=== PATIENT | female | born 1950 | race Caucasian/White ===

== ENCOUNTER → 2016-11-26 | Outpatient (CLI) | payer OTHER ==
[2014-07-20 10:01] VITALS: BP 179/86
[~2016-11-26] MED LIST: ASPI325T4 PO; ATEN25TA PO; ATOR20TA PO; CYCL1DRO OP; DIAZ5TAB PO; DULO60CA6 PO; ESOM40CA PO; FLUO20CA16 PO; FLUO20CA8 PO; HYDR200T PO; HYDR4TAB13 PO; HYDR8TAB29 PO; IBUP-1027 PO; IBUP-1060 PO; LIDO700A4 TP; MECL12.52 PO; META800T PO; META800T21 PO; OXYC15TA PO; OXYM20TA10 PO; PREG75CA PO; RANI150T6 PO; TIZA4CAP3 PO
--- NOTE | 2016-11-27 05:02 | PAIN ---
DATE OF SERVICE: 11/26/2016 PROGRESS NOTE FOR PAIN CLINIC DIAGNOSES: 1. Lumbar radiculopathy with lumbar spinal stenosis and lumbar degenerative disk disease. 2. Myofascial pain. HISTORY OF PRESENT ILLNESS: The patient is a 66-year-old female who returns for followup status post medication management with both oxycodone and Lidoderm patches as well as diazepam. The patient reports she is doing much better with the oxycodone as far as it is not causing a fogginess as the hydromorphone did that we had her on before. The patient reports the pain is not well controlled; however, only about 50% improvement with the medication and she has been increasing her activity lately, which may have some contributing factors as well, taking care of her [id number] who has been quite ill with a lot of lifting and cleaning and even working on her hands and knees with hydraulic tester. The patient reports the pain is now in the low back, bilateral lower extremities, radiating into the both of them with achy, sharp, dull, shooting and tingling sensation, which is sometimes constant. The patient reports that she is only sleeping for a few hours at night. She is having to wake up frequently, change positions, and even take pain medicine at night sometimes. The patient reports no new motor or sensory deficits, no new bowel or bladder incontinence or other complaints. The patient rates her pain anywhere from a 6-10 on the scale 10; it is currently at 6 today. PHYSICAL EXAMINATION: VITAL SIGNS: The patient's blood pressure is 157/87, pulse 59, respirations are 20, temperature is 98.2 degrees Fahrenheit, height is 5 feet 2 inches, and weighs 177 pounds. GENERAL: The patient is awake, alert, oriented, appropriate, very pleasant demeanor. HEENT: Head shows normocephalic, atraumatic. Extraocular movements are intact, symmetrical. Oral cavity, mucous membranes are moist and pink. Dentition is intact. NECK: Shows anterior throat supple without palpable lymphadenopathy noted. Swallow reflex is symmetrical. CHEST: Shows normal on inspection. Breath sounds are clear to auscultation bilaterally. HEART: Shows S1 and S2 clear. No murmurs auscultated. ABDOMEN: Obese, soft, nontender, nondistended. No palpable organomegaly is noted. No rebound or guarding demonstrated. BACK: The patient's back shows spine grossly midline. Lumbar paraspinous muscle shows some mild tenderness with palpation in the paraspinous musculature both in the middle and lower distribution, but without radiation. EXTREMITIES: The patient's lower extremities showed deep tendon reflexes 1+ in the patellar and tendo calcaneus tendons. Motor exam is 5/5 with dorsiflexion, extension and equal. PLAN: Options were discussed with the patient and the patient's old chart was reviewed as was her current medication regimen updated. Current review of systems updated today as well and we will refill the patient's Lidoderm patches as well as Valium and also change the oxycodone from 10 mg to 15 mg with instructions, side effects to be aware of discussed with each of her medications. We will follow up in approximately 2 months or sooner if necessary. The patient was cautioned as to the medication regimen and if any difficulties arise to call immediately and discuss potential changes at that time. The patient understands and agrees. We will follow up as scheduled. TASHIA RAINES MD DR: SONIA/anya JOB#: [id number] / [id number]
== END | disposition home or self-care (01) ==
LOC: PNCL 13:03
PROVIDERS: ATTEND Anesthesiology
DX: M51.16 Intervertebral disc disorders with radiculopathy, lumbar region (principal); M48.06 Spinal stenosis, lumbar region; M79.1 Myalgia
CPT/HCPCS: 99212

== ENCOUNTER → 2017-01-28 | Outpatient (CLI) | payer OTHER ==
[2014-07-20 10:01] VITALS: BP 179/86
[~2017-01-28] MED LIST changes: -ASPI325T4 PO; +ASPI325T8 PO; -HYDR4TAB13 PO; +HYDR4TAB45 PO; +META-21 PO; -META800T21 PO; -OXYM20TA10 PO; +OXYM20TA17 PO
== END | disposition home or self-care (01) ==
LOC: PNCL 09:59
PROVIDERS: ATTEND Anesthesiology
DX: M48.06 Spinal stenosis, lumbar region (principal); M51.16 Intervertebral disc disorders with radiculopathy, lumbar region
CPT/HCPCS: G0463

== ENCOUNTER → 2017-03-25 | Outpatient (CLI) | payer OTHER ==
[2014-07-20 10:01] VITALS: BP 179/86
--- NOTE | 2017-03-25 19:16 | PN ---
DATE: 03/25/2017 DIAGNOSES: Lumbar radiculopathy with lumbar degenerative disk disease and lumbar spinal stenosis with myofascial pain. HISTORY OF PRESENT ILLNESS: The patient is a 66-year-old female who returns for followup status post medication management with both oxycodone and Valium and Lidoderm patches. The patient reports she has been doing fairly well with this, but the oxycodone is not lasting as it did in the past and she is having to take more Advil and Tylenol on top of the pain medications to try and get any relief. The patient reports still significant pain across the low back in the bilateral posterior gluteus regions and lateral thighs as well as medial thighs, middle back, upper back and neck; rates a 10 on a scale of 10 at its worst, rates a 7 at its least and is 7 on average. The patient reports it as aching, tight, tingling, constant, radiating in the lower extremities and the back. The patient has not had any diagnostic studies on her back recently. We discussed an MRI scan, but she would like to wait until she has Medicare insurance, which she will have in May of this year. The patient reports no side effects with medication and generally reports about a 75-80% improvement with the medications but now has about 50% improvement. The patient reports it awakens her from sleep. She is only sleeping 2 to 3 hours a night. She has to reposition, take pain medication, get out of bed, changing positions, but is able to get back to sleep most nights. PHYSICAL EXAMINATION: VITAL SIGNS: Today, the patient's blood pressure 143/81, pulse 63, respirations 18, temperature is 97.7 degrees Fahrenheit, height is 5 feet 2 inches, weighs 174 pounds. GENERAL: The patient is awake, alert, oriented, appropriate, very pleasant demeanor. HEENT: Shows normocephalic, atraumatic. Extraocular movements are intact and symmetrical. Oral cavity, mucous membranes are moist and pink. Dentition is intact. NECK: Shows anterior throat supple. CHEST: Shows breath sounds clear to auscultation bilaterally. HEART: Shows S1 and S2 clear. ABDOMEN: Obese, soft, nontender, nondistended. No palpable organomegaly is noted. BACK: Shows spine grossly midline. Normal appearing thoracic kyphosis and minor flattening of lumbar lordotic curvature. Lumbar paraspinous muscle shows some mild tenderness to palpation, but only diffusely bilaterally without radiation. The patient shows good rotational motion both laterally as well as extension and flexion of lumbar spine without exacerbation of pain. LOWER EXTREMITIES: Show deep tendon reflexes at 1+ in the patellar and tendo calcaneus tendons. Motor exam is approximately 4 on a scale of 5, but equal and symmetrical with dorsiflexion, extension, quadriceps and hamstring flexion. Peripheral pulses are 1+ posterior tibial and no edema is noted bilaterally. Options were discussed with the patient. The patient's old chart was reviewed. Her current medication regimen updated. Current review of systems updated today as well and we will change the patient's oxycodone to hydromorphone as she has tolerated this very well in the past and seems to be developing some physiologic tolerance to the oxycodone itself. Also, we will have her obtain Valium from her primary care physician if he sees fit to do this as we instructed her we no longer prescribe this with opioids together. The patient understands and agrees. The patient was given instructions as well as side effects. She is aware with the medication and again, we discussed the MRI scan of the lumbar spine. She will like to wait until her insurance changes, which will be May. I encouraged her to reconsider this as her pain is getting somewhat worse in the back and radiating into the lower extremities, but she would like to wait and she will think about it. The patient was given 2-month prescription with her medication as well as instructions and side effects discussed and will follow up as scheduled. TASHIA RAINES MD DR: SONIA/anya JOB#: [id number] / [id number]
== END | disposition home or self-care (01) ==
LOC: PNCL 11:28
PROVIDERS: ATTEND Anesthesiology
DX: M51.16 Intervertebral disc disorders with radiculopathy, lumbar region (principal); M48.06 Spinal stenosis, lumbar region; M79.1 Myalgia
CPT/HCPCS: 99212

== ENCOUNTER → 2017-05-20 | Outpatient (CLI) | payer OTHER ==
[2014-07-20 10:01] VITALS: BP 179/86
--- NOTE | 2017-05-20 17:17 | PAIN ---
DATE OF SERVICE: 05/20/2017 DIAGNOSES: 1. Lumbar radiculopathy with lumbar degenerative disk disease and lumbar spinal stenosis. 2. Myofascial pain. HISTORY OF PRESENT ILLNESS: The patient is a 66-year-old female who returns for followup status post medication management. We had changed her oxycodone to hydromorphone on her last visit, which was 03/25. The patient reports that this has not been working very well. She has been in a significant increase in pain, mostly in her low back to the point where it is becoming very stiff. Rated 10 on a scale of 10 at its worst, 9 on an average and 8 at its least and is 8 today. The patient reports aching, sharp, tight, tingling, radiating, constant, becoming more severe; worse with walking, standing, change in positions; better with sitting or lying down; does not awaken her from sleep at night, but becoming much more noticeable and tender. The patient had had some interventional techniques and injections in the past, but without any significant improvement and is adamantly against trying these again. I would be managing her with medication management and will make some adjustments with her today as well. The patient reports she has been seeing her chiropractor. She has been doing stretching every day, walking as much as she can, but the pain is becoming more inhibiting regarding ability to exercise and do any daily activities. PHYSICAL EXAMINATION: VITAL SIGNS: The patient's blood pressure 178/93, pulse 59, respirations 18, temperature 97.6 degrees Fahrenheit, height is 5 feet 2 inches, weight is 177 pounds. GENERAL: The patient is awake, alert, oriented, appropriate, is a very pleasant demeanor. HEENT: Head shows normocephalic, atraumatic. The patient wears eyeglasses. Extraocular movements are intact and symmetrical. Oral cavity shows mucous membranes are moist and pink. Dentition is intact. NECK: Shows anterior throat supple without palpable lymphadenopathy noted. Swallow reflex is symmetrical. CHEST: Shows normal with inspection. Breath sounds are clear to auscultation bilaterally. HEART: Shows S1 and S2 clear. No murmurs auscultated. ABDOMEN: Soft, nontender, nondistended. No palpable organomegaly. No rebound or guarding demonstrated. MUSCULOSKELETAL: The patient's back shows spine grossly in the midline with a slight exaggeration of thoracic kyphosis, mild flattening of lumbar lordotic curvature. Lumbar paraspinous musculature shows symmetrical, but very tender throughout the upper, middle and lower distribution, very firm, very tight musculature bilaterally without specific trigger points or radiation, but significantly tender throughout bilaterally. The patient reports pain with rotational motion, but only slightly. Good extension and flexion at 10 degrees posterior, 45 degrees anterior without significant pain reported. Right and left lateral rotation mild pain in the low back, but only mildly so without radiation. Lower extremities show deep tendon reflexes 1+ in the patellar and tendo-calcaneus tendons. Motor exam is strong with dorsiflexion and extension, rated about 4 on a scale of 5, but symmetrical and equal. Peripheral pulses are 1+ posterior tibial and dorsalis pedis pulses. No peripheral edema is noted. No clubbing or cyanosis. PLAN: Options were discussed with the patient and the patient's old chart was reviewed as her current medication regimen and updated. Current review of systems updated today as well. We will change her hydromorphone to oxycodone 15 mg as she did better with this in the past. Also, we will add a muscle relaxant of Zanaflex 1-2 tablets up to 3 times daily. The patient was given instructions as well as cautions regarding side effects, regarding use of the medications. Also, we will have the urinalysis today obtained and renew the patient's narcotic contract. She was given a copy of this as well. The patient will follow up in approximately 2 months or sooner as necessary and as scheduled. TASHIA RAINES MD DR: SONIA/anya JOB#: [id number] / [id number]
== END | disposition home or self-care (01) ==
LOC: PNCL 11:52
PROVIDERS: ATTEND Anesthesiology
DX: M51.16 Intervertebral disc disorders with radiculopathy, lumbar region (principal); M48.061 Spinal stenosis, lumbar region without neurogenic claudication
CPT/HCPCS: 99212

== ENCOUNTER → 2017-07-15 | Outpatient (CLI) | payer MEDICARE, OTHER ==
[2014-07-20 10:01] VITALS: BP 179/86
[~2017-07-15] MED LIST changes: +METO25TA4 PO; +MORP15TA PO; +TIZA4TAB PO
--- NOTE | 2017-07-15 18:40 | PAIN ---
DATE OF SERVICE: 07/15/2017 DIAGNOSES: 1. Lumbar radiculopathy with lumbar degenerative disk disease, lumbar spinal stenosis. 2. Myofascial pain. HISTORY OF PRESENT ILLNESS: The patient is a 67-year-old female who returns for followup status post medication management. We had changed from hydromorphone to oxycodone at her last visit, reports it is not really taking care of her pain very well, still having significant pain in the low back primarily, which is a 9 on a scale of 10 at its worst, an 8 on average, 8 at its least and is 8 today. The patient reports aching, sharp, tight, shooting, tingling, becoming more constant, radiating, but the aching quality is the worst with activity, standing, walking, changing positions, better with lying down or sitting, but still awakens her from sleep about once or twice at night. The patient reports no new motor or sensory deficits. The Zanaflex that we tried was doing much better with some muscle relaxation with some minor sedation. The patient reports still some numbness in her legs with prolonged sitting more than about 20-30 minutes, standing, walking, bending, flexing such as vacuuming causing pain and becoming much more noticeable. The patient reports no new motor or sensory deficits, no bowel or bladder incontinence. PHYSICAL EXAMINATION: VITAL SIGNS: The patient's blood pressure 134/75, pulse 63, respirations 16, temperature 97.9 degrees Fahrenheit, height is 5 feet 2 inches, weight is 181 pounds. GENERAL: The patient is awake, alert, oriented, appropriate, very pleasant demeanor. HEENT: Head shows normocephalic, atraumatic. Extraocular movements are intact and symmetrical. Oral cavity: Mucous membranes moist and pink. Dentition is intact. NECK: Shows anterior throat supple without palpable lymphadenopathy noted. Swallow reflex symmetrical. CHEST: Shows normal with inspection. Breath sounds clear to auscultation bilaterally. HEART: Shows S1, S2 clear. No murmurs auscultated. ABDOMEN: Soft, nontender, nondistended. No palpable organomegaly noted. No rebound or guarding demonstrated. BACK: Shows spine grossly in the midline with moderate tenderness with palpation of the lumbar paraspinous musculature, although appears symmetrical on inspection with normal lordotic curvature without radiation, some minor tenderness over the sacroiliac region as well as the sacrum, but only minor. The patient shows good rotational motion with some pain reported in the low back with rotation both 10 degrees right and left, extension 10 degrees, forward flexion 45 degrees is without pain. EXTREMITIES: Lower extremities show deep tendon reflexes 1+ in the patellar and tendo calcaneus tendons. Motor exam is strong with probably 4 on a scale of 5, but equal dorsiflexion, extension, quads and hamstring flexion. No peripheral edema is noted. Peripheral pulses are 1+ posterior tibial bilaterally. Options were discussed with the patient. The patient's old chart was reviewed as her current medication regimen updated. Current review of systems updated today as well. We will change from oxycodone to morphine sulfate immediate release 15 mg. The patient was given instructions as well as side effects to be aware of with the new medication. Also, refilled the patient's Zanaflex as prescribed. The patient will return to the clinic in approximately 60 days or sooner, was given 2-month prescription and is to call with any questions or concerns or intolerance to the medication if those come up as soon as possible. TASHIA RAINES MD DR: SONIA/anya JOB#: [id number] / [id number]
== END | disposition home or self-care (01) ==
LOC: PNCL 11:35
PROVIDERS: ATTEND Anesthesiology
DX: M48.061 Spinal stenosis, lumbar region without neurogenic claudication (principal); M54.16 Radiculopathy, lumbar region; M51.36 Other intervertebral disc degeneration, lumbar region
CPT/HCPCS: G0463

== ENCOUNTER → 2017-10-08 | Outpatient (CLI) | payer MEDICARE | END | disposition home or self-care (01) | LOC: PNCL 08:16 | DX: M48.061 Spinal stenosis, lumbar region without neurogenic claudication (principal); M51.16 Intervertebral disc disorders with radiculopathy, lumbar region; M79.1 Myalgia | CPT/HCPCS: G0463 ==

== ENCOUNTER → 2018-01-16 | Outpatient (CLI) | payer MEDICARE ==
[~2018-01-16] MED LIST changes: -ASPI325T8 PO; -ATEN25TA PO; -ATOR20TA PO; +BUPIVACAINE MPF 0.25% 30 ML VIAL.; -CYCL1DRO OP; -DIAZ5TAB PO; -DULO60CA6 PO; -ESOM40CA PO; -FLUO20CA16 PO; -FLUO20CA8 PO; -HYDR200T PO; -HYDR4TAB45 PO; -HYDR8TAB29 PO; -IBUP-1027 PO; -IBUP-1060 PO; +IOHEXOL 180 MG/ML 10 ML VIAL.; -LIDO700A4 TP; +LIDOCAINE 1% PF 2 ML VIAL.; -MECL12.52 PO; -META-21 PO; -META800T PO; -METO25TA4 PO; -MORP15TA PO; -OXYC15TA PO; -OXYM20TA17 PO; -PREG75CA PO; -RANI150T6 PO; -TIZA4CAP3 PO; -TIZA4TAB PO; +methylPREDNISolone ACETATE 40 MG/ML VIAL.; +methylPREDNISolone ACETATE 80 MG/ML VIAL.
== END ==
LOC: PNCL 09:21
DX: M51.16 Intervertebral disc disorders with radiculopathy, lumbar region (principal); M48.061 Spinal stenosis, lumbar region without neurogenic claudication; M96.1 Postlaminectomy syndrome, not elsewhere classified; M79.1 Myalgia
CPT/HCPCS: 62323; J1030; J1040; J3490; Q9965

== ENCOUNTER → 2018-02-06 | Outpatient (CLI) | payer MEDICARE | END | disposition home or self-care (01) | LOC: PNCL 09:29 | DX: M51.16 Intervertebral disc disorders with radiculopathy, lumbar region (principal); M48.061 Spinal stenosis, lumbar region without neurogenic claudication | CPT/HCPCS: G0463 ==

== ENCOUNTER → 2018-04-24 | Outpatient (CLI) | payer MEDICARE ==
[2014-07-20 10:01] VITALS: BP 179/86
[~2018-04-24] MED LIST changes: +ASPI325T8 PO; +ATEN25TA PO; +ATOR20TA PO; -BUPIVACAINE MPF 0.25% 30 ML VIAL.; +CYCL1DRO OP; +DIAZ5TAB PO; +DULO60CA6 PO; +ESOM40CA PO; +FLUO20CA16 PO; +FLUO20CA8 PO; +HYDR200T71 PO; +HYDR4TAB45 PO; +HYDR8TAB29 PO; +IBUP-1027 PO; +IBUP-1060 PO; -IOHEXOL 180 MG/ML 10 ML VIAL.; +KETO1SPR NS; +LIDO700A4 TP; -LIDOCAINE 1% PF 2 ML VIAL.; +LISI1TAB7 PO; +MECL12.52 PO; +META-21 PO; +META800T PO; +METO-239 PO; +METO25TA4 PO; +MORP15TA PO; +OXYC-328 PO; +OXYC15TA PO; +OXYM20TA17 PO; +PREG75CA PO; +RANI150T21 PO; +TIZA4CAP3 PO; +TIZA4TAB PO; -methylPREDNISolone ACETATE 40 MG/ML VIAL.; -methylPREDNISolone ACETATE 80 MG/ML VIAL.
--- NOTE | 2018-04-24 13:52 | PAIN ---
DATE OF SERVICE: 04/24/2018 PROGRESS NOTE FOR PAIN CLINIC DIAGNOSES: 1. Lumbar radiculopathy with lumbar degenerative disk disease, lumbar spinal stenosis and post-lumbar laminectomy syndrome. 2. Myofascial pain. HISTORY OF PRESENT ILLNESS: The patient is a 67-year-old female who returns for followup status post lumbar epidural steroid injection and also medication management with MSIR and Zanaflex. The patient reports that the injection helped significantly; about 95% improvement for the first 2 weeks, is about a 65% improvement now, is about 60% overall, but still the patient reports the pain is increased in her low back and bilateral lower extremities. The patient reports that her copay for her shot is too expensive for her to do another one at this time and her legs are becoming very weak, can hardly get around. It is aching, sharp, dull, tight, shooting, stabbing, cramping, burning, tingling, radiating, becoming more constant, more severe and more unbearable. The patient was brought to tears describing the pain level today. The patient reports it is a 10 on a scale of 10 at its worst, average and its least and is a 10 today as well. The patient reports initially she was increasing her distance walking, returning to activities, both at home and working, now she has been spending most of her time in bed over the last week or so as the morphine does not seem to be helping as it did in the past. The patient reports no significant side effects with the medication, but the pain is becoming more significant. PHYSICAL EXAMINATION: VITAL SIGNS: The patient's blood pressure 129/74, pulse 72, respirations 20, temperature 97.4 degrees Fahrenheit, weighs 180 pounds. GENERAL: The patient is awake, alert, oriented, appropriate, very pleasant demeanor. HEENT: Head shows normocephalic, atraumatic. Extraocular movements are intact and symmetrical. Oral cavity: Mucous membranes are moist and pink. Dentition is intact. NECK: Shows anterior throat supple without palpable lymphadenopathy noted. Swallow reflex is symmetrical. CHEST: Shows normal on inspection. Breath sounds are clear to auscultation bilaterally. HEART: Shows S1, S2 clear. No murmurs auscultated. ABDOMEN: Soft, nontender, nondistended. No palpable organomegaly is noted. No rebound or guarding demonstrated. BACK: Shows spine grossly in the midline. Normal appearing thoracic kyphosis and some minor flattening of lumbar lordotic curvature. Lumbar paraspinous muscle shows symmetrical on inspection, on palpation shows some moderate tenderness, but only diffusely bilaterally throughout the upper, middle and lower distribution of paraspinous muscles. The patient shows slow deliberate movement of the rotational spine of the lumbar distribution, but has full rotation past 10 degrees right and left as well as extension past 10 degrees and flexion 45 degrees, again slow and deliberate but completed without significant increase in pain by her report. EXTREMITIES: The patient's lower extremities show deep tendon reflexes at 1+ in the patellar and tendo calcaneus tendons. Motor exam is approximately 4 on a scale of 5, but equal and symmetrical with dorsiflexion, extension, quadriceps and hamstring flexion and bilaterally symmetrical. Peripheral pulses are 1+ posterior tibia. No peripheral edema is noted. Options were discussed with the patient. The patient's old chart was reviewed as her current medication regimen updated. Current review of systems updated today as well. We will refill the patient's Zanaflex. We will change the MSIR to oxycodone with acetaminophen at the 10 mg size up to 4 times daily. The patient was given instructions as well as side effects to be aware of with medications. The patient has had appropriate [facility] reporting as well as appropriate urinalysis to date. We will obtain a urinalysis today as well as routine screening and renewal of the patient's narcotic contract. The patient was given instructions again and side effects to be aware of with medication and will follow up in approximately 1 month as scheduled. TASHIA RAINES MD DR: SONIA/anya JOB#: [id number] / [id number]
== END | disposition home or self-care (01) ==
LOC: PNCL 14:43
PROVIDERS: ATTEND Anesthesiology
DX: M48.061 Spinal stenosis, lumbar region without neurogenic claudication (principal); M51.16 Intervertebral disc disorders with radiculopathy, lumbar region; M96.1 Postlaminectomy syndrome, not elsewhere classified; G89.4 Chronic pain syndrome; K21.9 Gastro-esophageal reflux disease without esophagitis; I10 Essential (primary) hypertension; F17.200 Nicotine dependence, unspecified, uncomplicated; Z90.710 Acquired absence of both cervix and uterus; Z88.5 Allergy status to narcotic agent; Z88.2 Allergy status to sulfonamides; Z79.899 Other long term (current) drug therapy
CPT/HCPCS: G0463

== ENCOUNTER → 2018-06-17 | Outpatient (CLI) | payer MEDICARE ==
[2014-07-20 10:01] VITALS: BP 179/86
[~2018-06-17] MED LIST changes: +IOHEXOL 180 MG/ML 10 ML VIAL. ONE; +LIDOCAINE 1% PF 2 ML VIAL. ONE; +methylPREDNISolone ACETATE 40 MG/ML VIAL. ONE; +methylPREDNISolone ACETATE 80 MG/ML VIAL. ONE
--- NOTE | 2018-06-17 13:20 | PAIN ---
DATE OF SERVICE: 06/17/2018 DIAGNOSES: Lumbar radiculopathy with lumbar degenerative disk disease, spinal stenosis and post-lumbar laminectomy syndrome. HISTORY OF PRESENT ILLNESS: The patient is a 68-year-old female who returns for followup status post lumbar epidural steroid injection x 1 and medication management with oxycodone. The patient is doing well with this on her stable regimen, but the pain has been flaring up in her low back and bilateral lower extremities. The patient reports that her copay was too high for her to do the injection on her last meeting, 04/24/2018, but she would like to proceed with that today as her radicular pain is becoming much more noticeable and much more problematic and painful. The patient reports pain in bilateral lower extremities, mostly in the posterior gluteus, posterior thighs, posterior calves and feet; numbness and radiating pain as well; worse with walking, standing, changing positions; better with sitting or lying down. It awakens her from sleep only rarely. The patient reports it is a 10 on a scale of 10 at its worst, 10 on average, 9 at least and is a 9 today. The patient reports no new motor or sensory deficit. Describes pain as achy, sharp, dull, tight, shooting, stabbing, cramping, burning, becoming more constant and more severe. PHYSICAL EXAMINATION: VITAL SIGNS: The patient's blood pressure today is 119/77, pulse is 76, respirations 18, temperature 98.2 degrees Fahrenheit, height is 5 feet 2 inches, weight of 177 pounds. GENERAL: The patient is awake, alert, oriented, appropriate, very pleasant demeanor. HEENT: Head shows normocephalic, atraumatic. Extraocular movements are intact and symmetrical. Oral cavity: Mucous membranes are moist and pink. Dentition is intact. NECK: Shows anterior throat supple without palpable lymphadenopathy noted. Swallow reflex is symmetrical. CHEST: Shows normal with inspection. Breath sounds clear to auscultation bilaterally. HEART: Shows S1, S2 clear. No murmurs auscultated. ABDOMEN: Soft, nontender, nondistended. No palpable organomegaly is noted. No rebound or guarding demonstrated. BACK: Shows spine grossly in the midline. Some flattening of lumbar lordotic curvature is appreciated with a normal appearing thoracic kyphotic curvature. Well healed surgical scar noted is noted in the lumbar distribution as well. Lumbar paraspinous muscle shows symmetrical on inspection. On palpation shows some moderate tenderness diffusely bilaterally but without radiation. No tenderness over the sacrum or sacroiliac regions. The patient shows good rotational motion both laterally greater than 10 degrees right and left as well as extension greater than 10 degrees, forward flexion greater than 45 degrees without significant pain reported. EXTREMITIES: Lower extremities show deep tendon reflexes 1+ in the patellar and tendo-calcaneus tendons. Motor exam is 4/5, but symmetrical and equal dorsiflexion, extension, quadriceps and hamstring flexion. Peripheral pulses of 1+ posterior tibial. No peripheral edema is noted bilaterally. Options were discussed with the patient. The patient's old chart was reviewed as her current medication regimen updated. Current review of systems updated today as well. We will proceed with a second in the series of lumbar epidural steroid injection today with fluoroscopic guidance. Risks were again discussed including, but not limited to bleeding, infection, possibility of epidural hematoma and subsequent neurological compromise, dural puncture, headaches, spinal cord and/or nerve damage, side effects of steroid medication and poor results regarding pain control. The patient understands and wished to proceed. The patient to return to clinic in approximately 4 weeks for followup. She was counseled on return appointment, activity level and side effects to be aware of. DIAGNOSES: Lumbar radiculopathy with lumbar spinal stenosis, lumbar degenerative disk disease, post-lumbar laminectomy syndrome. PROCEDURE: Lumbar epidural steroid injection, translaminar approach at L5-S1 level using C-arm fluoroscopic under sterile prep and drape using local anesthetic. MEDICATION INJECTED: A total of 120 mg Depo-Medrol plus 10 mL of preservative-free normal saline and 2 mL of Isovue for contrast. CONDITION AT DISCHARGE: Stable. The patient tolerated the procedure well, had no complications. TASHIA RAINES MD DR: SONIA/anya JOB#: [id number] / [id number]
== END | disposition home or self-care (01) ==
LOC: PNCL 11:40
PROVIDERS: ATTEND Anesthesiology
DX: M51.16 Intervertebral disc disorders with radiculopathy, lumbar region (principal); M48.061 Spinal stenosis, lumbar region without neurogenic claudication; M96.1 Postlaminectomy syndrome, not elsewhere classified; Z88.1 Allergy status to other antibiotic agents; Z88.2 Allergy status to sulfonamides; Z91.040 Latex allergy status; Z88.8 Allergy status to other drugs, medicaments and biological substances; Z79.899 Other long term (current) drug therapy
CPT/HCPCS: 62323; J1030; J1040; Q9965

== ENCOUNTER → 2018-07-15 | Outpatient (CLI) | payer MEDICARE ==
[2014-07-20 10:01] VITALS: BP 179/86
[~2018-07-15] MED LIST changes: -OXYC-328 PO; +OXYC1TAB22 PO
--- NOTE | 2018-07-15 13:28 | PAIN ---
DATE OF SERVICE: 07/15/2018 DIAGNOSES: Lumbar radiculopathy with lumbar spinal stenosis, degenerative disk disease and lumbar post-laminectomy syndrome. HISTORY OF PRESENT ILLNESS: The patient is a 68-year-old female who returns for a followup status post lumbar epidural steroid injection x 2, most recently on 06/17. The patient reports she did very well with about 75% improvement in the low back for the first few weeks. The pain has returned now in the low back and right lower extremity, mostly in the posterior gluteus, posterior thigh, posterior calf, radiating; worse with walking, standing, changing positions. She describes the pain as aching and tight, shooting, tingling, radiating, becoming more noticeable, more constant. Does not awaken her from sleep at night, much better with sitting or lying down, worse with standing and walking, changing positions. The patient reports no new motor or sensory deficits, no new bowel or bladder incontinence or other complaints. The patient also on medication management with oxycodone, but reports she has been having some significant diarrhea recently and this has not been working as well as morphine that she had taken in the past. We made some discussion and we changed this back and she did tolerate this well. PHYSICAL EXAMINATION: VITAL SIGNS: The patient's blood pressure is 118/71, pulse 73, respirations 18, temperature 98.1 degrees Fahrenheit, height is 5 feet 2 inches, weight is 173 pounds. GENERAL: The patient is awake, alert, oriented, appropriate, very pleasant demeanor. HEENT: Shows normocephalic, atraumatic. Extraocular movements are intact and symmetrical. Oral cavity shows mucous membranes moist and pink. Dentition is intact. NECK: Shows anterior throat supple without palpable lymphadenopathy noted. Swallow reflex symmetrical. CHEST: Shows normal with inspection. Breath sounds are clear to auscultation bilaterally. HEART: Shows S1, S2 clear. No murmurs auscultated. ABDOMEN: Soft, nontender, nondistended. No palpable organomegaly is noted. No rebound or guarding demonstrated. MUSCULOSKELETAL: Back shows spine grossly in the midline, normal appearing thoracic kyphosis and lumbar lordotic curvature is slightly flattened, well healed surgical scars noted in the lumbar distribution. The patient's lumbar paraspinous muscle shows symmetrical on palpation and moderately tender, more on the right than the left, with palpation as well, but without significant atrophy or hypertrophy. The patient has good rotational motion of the lumbar spine both laterally as well as extension and flexion without significant difficulty. Lower extremities show deep tendon reflexes 1+ in the patellar and tendo-calcaneus tendons. Motor exam is approximately 4 on a scale of 5, but equal and symmetrical with dorsiflexion, extension, quadriceps and hamstring flexion. Peripheral pulses are 1+ posterior tibial. No peripheral edema is noted bilaterally. PLAN: Options were discussed with the patient. The patient's old chart was reviewed as her current medication regimen and updated. Current review of systems updated today as well. We will proceed with a third in the series of lumbar epidural steroid injection today with fluoroscopic guidance. Risks were again discussed including, but not limited to, bleeding, infection, possibility of epidural hematoma, subsequent neurological compromise, dural puncture, headaches, spinal cord and/or nerve damage, side effects of steroid medication and poor results regarding pain control. The patient understands and wished to proceed. The patient will return to the clinic in approximately 2 weeks for a followup, was counseled on return appointment, activity level and side effects to be aware of. DIAGNOSES: Lumbar radiculopathy with lumbar degenerative disk disease, lumbar spinal stenosis and post-lumbar laminectomy syndrome. PROCEDURE: Lumbar epidural steroid injection, translaminar approach at L5-S1 level using C-arm fluoroscopic guidance under sterile prep and drape using local anesthetic. MEDICATION INJECTED: A total of 120 mg Depo-Medrol plus 10 mL of preservative-free normal saline and 2 mL of Isovue for contrast. CONDITION AT DISCHARGE: Stable. The patient tolerated procedure well, had no complications. TASHIA RAINES MD DR: SONIA/anya JOB#: [id number] / [id number]
== END ==
LOC: PNCL 10:34
PROVIDERS: ATTEND Anesthesiology
DX: M51.16 Intervertebral disc disorders with radiculopathy, lumbar region (principal); M48.061 Spinal stenosis, lumbar region without neurogenic claudication; M96.1 Postlaminectomy syndrome, not elsewhere classified
CPT/HCPCS: 62323; J1030; J1040; Q9965

== ENCOUNTER → 2018-11-24 | Outpatient (CLI) | payer MEDICARE ==
[2014-07-20 10:01] VITALS: BP 179/86
[~2018-11-24] MED LIST changes: -LIDOCAINE 1% PF 2 ML VIAL. ONE; +RANI-376 PO; -RANI150T21 PO
--- NOTE | 2018-11-25 09:04 | PAIN ---
DATE OF SERVICE: 11/24/2018 DIAGNOSES: Lumbar radiculopathy with lumbar degenerative disk disease, lumbar spinal stenosis and post-lumbar laminectomy syndrome. HISTORY OF PRESENT ILLNESS: The patient is a 68-year-old female who returns for followup status post medication management as well as lumbar epidural steroid injections #3 was on 07/15/2018. The patient did very well with this with about 65% improvement. After the last injection, the patient reports that the pain has returned now over the past month or so in the low back and bilateral lower extremities in the posterior gluteus, posterior thighs, posterior calf to some extent, but mostly in the back itself. The patient reports it is a 10 on a scale of 10 at its worst, at least, average and is a 10 today. The patient reports it is radiating, constant, aching, sharp, dull, tingling, burning, shooting and stabbing. The patient reports it is worse with walking, standing, changing positions. She has been having it to wake her from sleep again. Initially, she was doing better with distance walking and doing activities at home and traveling with greater ease, now the pain is beginning to return. The patient reports no new motor or sensory deficits, no new bowel or bladder incontinence or other complaints. PHYSICAL EXAMINATION: VITAL SIGNS: The patient's blood pressure 177/105, pulse 70, respirations 18, temperature 98.1 degrees Fahrenheit. Height is 5 feet 2 inches, weight is 178 pounds. GENERAL: She is awake, alert, oriented, appropriate, very pleasant demeanor. HEENT: Head shows normocephalic, atraumatic. Extraocular movements are intact and symmetrical. Oral cavity: Mucous membranes moist and pink. Dentition is intact. NECK: Shows anterior throat supple without palpable lymphadenopathy noted. Swallow reflex symmetrical. CHEST: Shows normal on inspection. Breath sounds are clear to auscultation bilaterally. HEART: Shows S1, S2 clear. No murmurs auscultated. ABDOMEN: Soft, nontender, nondistended. No palpable organomegaly is noted. No rebound or guarding demonstrated. BACK: Shows spine grossly in the midline. Normal appearing thoracic kyphosis and minor flattening of lumbar lordotic curvature. Lumbar paraspinous muscle shows symmetrical on inspection with well-healed surgical scar, with palpation shows some moderate tenderness diffusely bilaterally throughout the upper, middle, lower distribution of paraspinous muscles, slightly more on the right than the left and very firm musculature, very tender bilaterally. The patient shows good rotational motion of lumbar spine without significant increase in pain, just a mild pain with increased flexion and extension. EXTREMITIES: Lower extremities show deep tendon reflexes 1+ in the patellar and 1+ in the tendo-calcaneus tendons. Motor exam is approximately 4 on a scale of 5, but equal and symmetrical dorsiflexion, extension, quadriceps and hamstring flexion. Peripheral pulses are 1+ posterior tibial. No peripheral edema is noted bilaterally. Options were discussed with the patient. The patient's old chart was reviewed as her current medication regimen updated. Current review of systems updated today as well. We will proceed with a first in this series of lumbar epidural steroid injection today with fluoroscopic guidance. Risks were again discussed including, but not limited to bleeding, infection, possibility of epidural hematoma, subsequent neurological compromise, dural puncture, headaches, spinal cord and/or nerve damage, side effects of steroid medication and poor results regarding pain control. The patient understands and wished to proceed. The patient to return to clinic in approximately 2 weeks for followup. She was counseled on return appointment, activity level and side effects to be aware of. DIAGNOSIS: Lumbar radiculopathy with lumbar degenerative disk disease, lumbar spinal stenosis and post-lumbar laminectomy syndrome. PROCEDURE: Lumbar epidural steroid injection, translaminar approach at L5-S1 level using C-arm fluoroscopic guidance under sterile prep and drape using local anesthetic. MEDICATION INJECTED: A total of 120 mg Depo-Medrol plus 10 mL of preservative-free normal saline and 2 mL of contrast. CONDITION AT DISCHARGE: Stable. The patient tolerated the procedure well, had no complications. TASHIA RAINES MD DR: SONIA/anya JOB#: [id number] / [id number]
== END | disposition home or self-care (01) ==
LOC: PNCL 14:34
PROVIDERS: ATTEND Anesthesiology
DX: M51.16 Intervertebral disc disorders with radiculopathy, lumbar region (principal); M48.061 Spinal stenosis, lumbar region without neurogenic claudication; M96.1 Postlaminectomy syndrome, not elsewhere classified; Z88.1 Allergy status to other antibiotic agents; Z88.2 Allergy status to sulfonamides; Z91.040 Latex allergy status; Z88.8 Allergy status to other drugs, medicaments and biological substances
CPT/HCPCS: 62323; J1030; J1040; Q9965

== ENCOUNTER → 2019-04-09 | Outpatient (CLI) | payer MEDICARE ==
[2014-07-20 10:01] VITALS: BP 179/86
[~2019-04-09] MED LIST changes: -IOHEXOL 180 MG/ML 10 ML VIAL. ONE; +LISI1TAB20 PO; -LISI1TAB7 PO; -TIZA4TAB PO; +TIZA4TAB2 PO; -methylPREDNISolone ACETATE 40 MG/ML VIAL. ONE; -methylPREDNISolone ACETATE 80 MG/ML VIAL. ONE
--- NOTE | 2019-04-09 22:14 | PAIN ---
DATE OF SERVICE: 04/09/2019 PROGRESS NOTE FOR PAIN CLINIC DIAGNOSES: 1. Lumbar radiculopathy with lumbar degenerative disk disease, lumbar spinal stenosis and post-lumbar laminectomy syndrome. 2. Myofascial pain. HISTORY OF PRESENT ILLNESS: The patient is a 68-year-old female who returns for followup status post lumbar epidural steroid injection x 1, most recently seen 11/24/2018. The patient reports she did fairly well initially, about 60% improvement after the injection with pain returning in the low back and right lower extremity. The patient reports it is in the posterior gluteus, posterior thigh, posterior calf and foot on the right side, worse with walking, standing, change in positions. The patient reports it is aching, sharp, dull, tight, shooting. Described as stabbing, cramping in the back, tingling, burning in the leg with radiating pain, constant with weightbearing. The patient reports it is better with sitting or lying down, but awakens her from sleep occasionally, but not every night. The patient reports no new motor or sensory deficits, no new bowel or bladder incontinence. Rates her pain as 10 on a scale of 10 at its worst in the past week, 9 on average, 7 at its least and is a 9 today. The patient reports no other changes. PHYSICAL EXAMINATION: VITAL SIGNS: The patient's blood pressure is 102/61, pulse 70, respirations 18, temperature 98.8 degrees Fahrenheit, height is 5 feet 2 inches, weight is 171 pounds. GENERAL: The patient is awake, alert, oriented, appropriate, very pleasant demeanor. HEENT: Head shows normocephalic, atraumatic. Extraocular movements are intact and symmetrical. The patient wears eye glasses. Oral cavity: Mucous membranes moist and pink. Dentition is intact. NECK: Shows anterior throat supple without palpable lymphadenopathy noted. Swallow reflex symmetrical. CHEST: Shows normal on inspection. Breath sounds clear to auscultation bilaterally. HEART: Shows S1, S2 clear. No murmurs auscultated. ABDOMEN: Soft, obese, nontender, nondistended. BACK: Shows spine grossly in the midline. Normal appearing thoracic kyphosis and flattening of lumbar lordotic curvature. Well-healed surgical scarring noted. Lumbar paraspinous muscle shows symmetrical on inspection with some moderate tenderness throughout the upper, middle and lower distribution of paraspinous muscles, slightly worse on the right than the left, but present bilaterally. The patient has good rotational motion both laterally as well as extension and flexion without significant increase in pain. EXTREMITIES: Lower extremities show deep tendon reflexes 1+ in patellar and tendo calcaneus tendons. Motor exam is approximately 4 on a scale of 5, but equal and symmetrical with dorsiflexion, extension, quadriceps and hamstring flexion. Peripheral pulses are 1+ posterior tibia. No peripheral edema is noted bilaterally. Options were discussed with the patient. The patient's old chart was reviewed as her current medication regimen updated. Current review of systems updated today as well and we will proceed with refill of the patient's medications today. The patient would like to try another injection; however, she has difficulty affording the copay and would like to wait for this. The patient has had appropriate K-TRACS reporting as well as appropriate urinalysis to date and we will refill the patient's MSIR at 60 mg level, which has increased from 30 mg on her last prescription as she reports the pain medicine is not doing nearly as well as it had and seems to be developing some physiological tolerance. The patient was given instruction as well as side effects to be aware of with the medication. The patient had appropriate K-TRACS reporting as well as appropriate urinalysis. We will refill this for 2-month period as noted. The patient was given instruction as well as side effects to be aware of with medications and will follow up in approximately 2 months or sooner as necessary. TASHIA RAINES MD DR: SONIA/anya JOB#: [id number] / [id number]
== END | disposition home or self-care (01) ==
LOC: PNCL 10:12
PROVIDERS: ATTEND Anesthesiology
DX: M51.16 Intervertebral disc disorders with radiculopathy, lumbar region (principal); M48.061 Spinal stenosis, lumbar region without neurogenic claudication; M96.1 Postlaminectomy syndrome, not elsewhere classified; M79.18 Myalgia, other site; E66.9 Obesity, unspecified
CPT/HCPCS: G0463

== ENCOUNTER → 2019-06-02 | Outpatient (CLI) | payer MEDICARE ==
[2014-07-20 10:01] VITALS: BP 179/86
[~2019-06-02] MED LIST changes: +ASPI81TA50 PO; +MORP-16 PO
--- NOTE | 2019-06-02 13:33 | PAIN ---
DATE OF SERVICE: 06/02/2019 PROGRESS NOTE FOR PAIN CLINIC DIAGNOSES: 1. Lumbar radiculopathy with lumbar degenerative disk disease and lumbar spinal stenosis and post-lumbar laminectomy syndrome. 2. Myofascial pain. HISTORY OF PRESENT ILLNESS: The patient is a 69-year-old female who returns for followup status post medication management with morphine immediate release. The patient reports with increased dose after her last visit, she is still not getting significant relief in the low back and specifically the right hip. The patient reports still significant pain traveling into the lower extremities bilaterally, aching, sharp, dull, tight, shooting in description with tingling pain in the back, burning in the legs, stabbing, cramping, and radiating; sometimes constant with walking, standing, and changing positions. The patient rates her pain as a 10 on a scale of 10 at its worst in the past week, 9 on average, 6 at its least, and is a 9 today. The patient reports no significant side effects with the morphine, however, even no real constipation which she has had trouble with in the past. The patient reports it awakens her from sleep occasionally, but not every night. She generally sleeps about 8 hours at a time. The patient reports no new motor or sensory deficits, no new bowel or bladder incontinence. PHYSICAL EXAMINATION: VITAL SIGNS: The patient's blood pressure is 109/66, pulse 72, respirations are 18, temperature 98.5 degrees Fahrenheit, weight is 172 pounds. GENERAL: The patient is awake, alert, oriented, appropriate, very pleasant demeanor. HEENT: Shows normocephalic, atraumatic. Extraocular movements are intact and symmetrical. Oral cavity: Mucous membranes moist and pink. Dentition is intact. NECK: Shows anterior throat supple without palpable lymphadenopathy noted. Swallow reflex symmetrical. CHEST: Shows normal on inspection. Breath sounds clear to auscultation bilaterally. HEART: Shows S1, S2 clear. No murmurs auscultated. ABDOMEN: Soft, nontender, nondistended. No palpable organomegaly is noted. BACK: Shows spine grossly in the midline. Well-healed surgical scar noted in the lumbar distribution. Lumbar paraspinous muscle shows symmetrical on inspection, on palpation shows some moderate tenderness diffusely, but only diffusely bilaterally without radiation. The patient has good rotational motion of lumbar spine, both laterally as well as extension and flexion with only some minor pain with extension, but not flexion. EXTREMITIES: Lower extremities show deep tendon reflexes 1+ in the patellar and tendo-calcaneus tendons. Motor exam is approximately 4 on a scale of 5, but equal and symmetrical bilaterally. Peripheral pulses are 1+ posterior tibia. No peripheral edema is noted. PLAN: Options were discussed with the patient. The patient's old chart was reviewed as current medication regimen updated. Current review of systems updated today as well. We will refill the patient's medications, but change to oxycodone as she was doing better with this in the past. After a long discussion today, we will discontinue the morphine and prescribed oxycodone 10 mg up to 4 times daily on a p.r.n. basis. The patient was given instruction as well as side effects to be aware of and cautioned with the narcotic medication and its safety use as well as storage. The patient has had appropriate K-TRACS reporting as well as appropriate urinalysis to date and we will refill this for a 2-month period. The patient was scheduled to return in approximately 2 months or sooner as necessary. TASHIA RAINES MD DR: SONIA/anya JOB#: [id number] / [id number]
== END | disposition home or self-care (01) ==
LOC: PNCL 10:28
PROVIDERS: ATTEND Anesthesiology
DX: M51.16 Intervertebral disc disorders with radiculopathy, lumbar region (principal); M48.061 Spinal stenosis, lumbar region without neurogenic claudication; M96.1 Postlaminectomy syndrome, not elsewhere classified; M79.18 Myalgia, other site
CPT/HCPCS: G0463

== ENCOUNTER → 2019-07-27 | Outpatient (CLI) | payer MEDICARE ==
[2014-07-20 10:01] VITALS: BP 179/86
[~2019-07-27] MED LIST changes: +FLUO20CA19 PO; -FLUO20CA8 PO; +MORP30TA PO
--- NOTE | 2019-07-27 13:19 | PAIN ---
DATE OF SERVICE: 07/27/2019 PROGRESS NOTE FOR PAIN CLINIC DIAGNOSES: Lumbar radiculopathy with lumbar degenerative disk disease, lumbar spinal stenosis and lumbar post-laminectomy syndrome and myofascial pain. HISTORY OF PRESENT ILLNESS: This is a 69-year-old female who returns for followup status post medication management with morphine and Percocet. The patient reports the Percocet had given her significant diarrhea. We changed her back from Percocet to the morphine on 07/13. The patient reports she is tolerating that better, but still has significant pain in the low back and into the lateral anterior thighs, left and right, worse on the right side. The patient reports it is controlled with the pain medication to about a 60-70% improvement, but still significant pain, especially when she wakes up in the morning. The patient reports it is a 10 on a scale of 10 at its worst in the past week, 8 on average, 8 at its least and is an 8 today. The patient reports it is aching, sharp, dull, shooting, tight, tingling, radiating, becoming more constant with activity. The patient reports no loss of motor function, no bowel or bladder incontinence, better with sitting or lying down; does not generally awaken her from sleep at night. PHYSICAL EXAMINATION: VITAL SIGNS: The patient's blood pressure 120/66, pulse 68, respirations 16, temperature 98.4 degrees Fahrenheit, height is 5 feet 2 inches, weight is 172 pounds. GENERAL: The patient is awake, alert, oriented, appropriate, very pleasant demeanor. HEENT: Shows normocephalic, atraumatic. Extraocular movements are intact and symmetrical. Oral cavity: Mucous membranes moist and pink. Dentition is intact. NECK: Shows anterior throat supple without palpable lymphadenopathy noted. Swallow reflex symmetrical. CHEST: Shows normal on inspection. Breath sounds are clear bilaterally. HEART: Shows S1, S2 clear. No murmurs auscultated. ABDOMEN: Obese, soft, nontender, nondistended. BACK: Shows spine grossly in the midline, normal-appearing cervical lordotic curvature, slight increase in thoracic kyphotic curvature and flattening of lumbar lordotic curvature with well-healed surgical scarring noted. Lumbar paraspinous muscle shows symmetrical on inspection, on palpation shows some moderate tenderness diffusely bilaterally but only diffusely without significant radiation. The patient has good rotational motion of lumbar spine with some moderate tenderness with right and left lateral rotation as well as extension and forward flexion. EXTREMITIES: Lower extremities show deep tendon reflexes 1+ in the patellar and tendo calcaneus tendons. Motor exam is approximately 4 on a scale of 5, but symmetrical with dorsiflexion, extension, quadriceps and hamstring flexion equal. Peripheral pulses are 1+. No peripheral edema is noted. Options were discussed with the patient. The patient's old chart was reviewed as her current medication regimen updated. Current review of systems updated today as well. We will proceed with refill of the patient's morphine 30 mg, decreased from 60 previously, also add hydrocodone 7.5 mg to take once a day between doses of the morphine. At this time, she was using this way with the Percocet, but has caused significant diarrhea. We changed to hydrocodone. The patient was given instruction as well as side effects to be aware of each of the medications. The patient has had appropriate K-TRACS reporting as well as appropriate urinalysis to date. We will also have her urinalysis drawn today as part of routine screening and renewal of the patient's narcotic contract. She was given a copy of this as well. The patient will follow up in approximately 2 months or sooner as necessary. TASHIA RAINES MD DR: SONIA/anya JOB#: [id number] / [id number]
== END | disposition home or self-care (01) ==
LOC: PNCL 10:46
PROVIDERS: ATTEND Anesthesiology
DX: M51.16 Intervertebral disc disorders with radiculopathy, lumbar region (principal); M48.061 Spinal stenosis, lumbar region without neurogenic claudication; M96.1 Postlaminectomy syndrome, not elsewhere classified; M79.18 Myalgia, other site
CPT/HCPCS: G0463

== ENCOUNTER → 2019-08-03 | Outpatient (CLI) | payer MEDICARE ==
[2014-07-20 10:01] VITALS: BP 179/86
[~2019-08-03] MED LIST changes: +GADOTERATE 7.5 MMOL/15ML VIAL. IVP ONE; -MECL12.52 PO; +MECL12.573 PO
--- NOTE | 2019-08-03 15:06 | KCIC ---
LUMBAR SPINE WO/W CONTRAST History: Radiculopathy. Previous lumbar surgeries. Chronic low back pain. Scoliosis. Technique: Multiplanar, multi sequential MR imaging was performed of the lumbar spine with and without contrast. Comparison: October 14, 2014 Findings: Rightward curvature of the lumbar spine. Normal vertebral body height. No fracture. Degenerative endplate edema T11-T12, L2-L3 and L3-L4. Mild retrolisthesis L2 on L3 and L3 on L4. Conus terminates at the normal location. No evidence of nerve root clumping. No pathologic enhancement. T12-L1: Right subarticular disc protrusion. Mild right subarticular recess narrowing. No canal narrowing. No neuroforaminal narrowing. L1-L2: Small posterior disc bulge. Bilateral subarticular recess narrowing. Mild facet arthropathy. No canal or neuroforaminal narrowing. L2-L3: Left subarticular and foraminal disc osteophyte complex. Mild facet arthropathy. Left subarticular recess narrowing. No canal narrowing. Mild left neural foraminal narrowing. No right neuroforaminal narrowing. L3-L4: Retrolisthesis. Broad-based posterior disc bulge. Facet arthropathy. Moderate to severe canal narrowing, progressed compared to prior. Mild bilateral neural foraminal narrowing. L4-L5: Posterior decompression. Broad-based posterior disc bulge. Advanced facet arthropathy. Mild canal narrowing. Mild bilateral neural foraminal narrowing. L5-S1: Advanced right facet arthropathy. No canal narrowing. Moderate right neuroforaminal narrowing. No left neuroforaminal narrowing. Overall degenerative findings are progressed compared to prior Impression: 1. Multilevel lumbar spondylosis with rightward curvature and retrolisthesis, progressed compared to prior. 2. Moderate to severe L3-L4 canal narrowing. 3. Multilevel neural foraminal narrowing most prominent right L5-S1. Electronically signed by: Wilfrid Kulkarni DO (08/03/2019 3:03 PM) [email or web address]
== END ==
LOC: KCIC MRI 10:09
PROVIDERS: ATTEND Anesthesiology
DX: M47.26 Other spondylosis with radiculopathy, lumbar region (principal); M48.061 Spinal stenosis, lumbar region without neurogenic claudication; M41.9 Scoliosis, unspecified
CPT/HCPCS: 72158; A9575

== ENCOUNTER → 2019-09-17 | Outpatient (CLI) | payer MEDICARE ==
[2014-07-20 10:01] VITALS: BP 179/86
[~2019-09-17] MED LIST changes: -FLUO20CA19 PO; +FLUO20CA20 PO; -GADOTERATE 7.5 MMOL/15ML VIAL. IVP ONE; +OMEP20CA16 PO
--- NOTE | 2019-09-17 22:44 | PAIN ---
DATE OF SERVICE: 09/17/2019 PROGRESS NOTE FOR PAIN CLINIC DIAGNOSES: 1. Lumbar radiculopathy with lumbar degenerative disk disease and lumbar spinal stenosis and post-lumbar laminectomy syndrome. 2. Myofascial pain. HISTORY OF PRESENT ILLNESS: The patient is a 69-year-old female who returns for followup status post medication management with morphine sulfate and hydrocodone. The patient reports she has been doing fairly well with this with about a 75% improvement in her pain overall with the medication. She was having some difficulty with PERCOCET causing some GI distress, we changed to hydrocodone, this has been much better. We did get a phone call from her pharmacy regarding prescriptions and regimen last month and we seemed to have that straightened out now. She brought two of her prescriptions back, which were extra that she did not need or had not filled. She did bring those both back today as requested to keep dates on track with her prescription refills. The patient reports still doing fairly well with the medication. No specific side effects, actually has some diarrhea generally in the mornings, but that is better during the day. The patient reports the pain in the low back, primarily into the lower extremities bilaterally, rated a 10 on a scale of 10, its worst over the past week, 8 on average, 6 at its least, and is an 8 today. The patient reports it is aching, sharp, dull, tight, shooting, sharp, burning, cramping, stabbing, can be radiating, can be severe with activity, but most days she is staying off her feet for the most part and this decreases the pain as well. The patient reports she sleeps fairly well at night, but does awaken her occasionally. PHYSICAL EXAMINATION: VITAL SIGNS: The patient's blood pressure 100/59, pulse 74, respirations 16, temperature 98.4 degrees Fahrenheit, height is 5 feet 2 inches, and weight is 165 pounds. GENERAL: The patient is awake, alert, oriented, appropriate, very pleasant demeanor. HEENT: Head shows normocephalic, atraumatic. Extraocular movements are intact and symmetrical. Oral cavity shows mucous membranes moist and pink. NECK: Shows anterior throat supple. CHEST: Shows normal on inspection. Breath sounds are clear. HEART: Shows S1, S2 clear. No murmurs auscultated. ABDOMEN: Soft, nontender, nondistended. No palpable organomegaly is noted. No rebound or guarding demonstrated. The patient has well-healed surgical scars noted. BACK: Shows spine grossly in the midline. Slight increase in thoracic kyphosis and minor flattening of lumbar lordotic curvature. Lumbar paraspinous muscle shows symmetrical on inspection, on palpation shows some moderate tenderness diffusely as well as well-healed surgical scarring in the midline with no radiation, no atrophy or hypertrophy. The patient has good rotational motion of lumbar spine with some minor tenderness with forward flexion and extension, but not with right and left lateral rotation. EXTREMITIES: The patient's lower extremities show deep tendon reflexes, 1+ in the patellar and tendo calcaneus tendons. Motor exam is 4 on a scale of 5, but equal and symmetrical with dorsiflexion, extension, quadriceps, and hamstring flexion. Peripheral pulses are 1+. No peripheral edema is noted. Options were discussed with the patient. The patient's old chart was reviewed. Her current medication regimen updated. Current review of systems updated today as well. We will proceed with refill of the patient's medication of morphine sulfate as well as hydrocodone for a 2-month prescription. The patient has had appropriate K-TRACS reporting as well as appropriate urinalysis to date and we will refill this for 2 months. Instructions, side effects to be aware of were discussed with each of the medications. The patient will follow up in approximately 2 months or sooner if necessary. TASHIA RAINES MD DR: SONIA/anya JOB#: [id number] / [id number]
== END | disposition home or self-care (01) ==
LOC: PNCL 11:12
PROVIDERS: ATTEND Anesthesiology
DX: M51.16 Intervertebral disc disorders with radiculopathy, lumbar region (principal); M48.061 Spinal stenosis, lumbar region without neurogenic claudication; M96.1 Postlaminectomy syndrome, not elsewhere classified; M79.18 Myalgia, other site
CPT/HCPCS: G0463

== ENCOUNTER → 2019-11-26 | Outpatient (CLI) | payer MEDICARE ==
[2014-07-20 10:01] VITALS: BP 179/86
[~2019-11-26] MED LIST changes: +HYDR-2763 PO; -OXYC15TA PO; +OXYC15TA3 PO; +POLY17PO29 PO; +PREG-9 PO; -PREG75CA PO
--- NOTE | 2019-11-26 12:14 | PAIN ---
DATE OF SERVICE: 11/26/2019 PROGRESS NOTE FOR PAIN CLINIC DIAGNOSES: 1. Lumbar radiculopathy with lumbar degenerative disk disease, lumbar spinal stenosis and post-lumbar laminectomy syndrome. 2. Myofascial pain. HISTORY OF PRESENT ILLNESS: The patient is a 69-year-old female who returns for followup status post medication management. We changed her medications about 3 months ago from oxycodone to hydrocodone. She is taking only 1 tablet a day and also admits to decrease it significantly and also taking morphine immediate release 30 mg up to 4 times daily. The patient reports she is doing very well currently with this regimen, has no specific side effects except for occasional constipation, but is treating that with some [id number]-nisrntz MiraLax and is doing quite well. The patient reports still significant back pain which is aching type and shooting, radiating across the low back and rarely into the lower extremities at this time. She has been increasing her activity at home with greater ease and comfort, walking greater distances, doing household activities, but essentially staying home without significant increase in pain, her activity generated pain. The patient reports the pain is a 8 on a scale of 10 at its worst over the past week, 7 on average, 7 at its least and is a 7 today. PHYSICAL EXAMINATION: VITAL SIGNS: The patient's blood pressure is 103/65, pulse 70, respirations 20, temperature is 99.0 degrees Fahrenheit. Weight is 169 pounds. GENERAL: The patient is awake, alert, oriented, appropriate, very pleasant demeanor. HEENT: Shows normocephalic, atraumatic. Extraocular movements are intact and symmetrical. Oral cavity shows mucous membranes moist and pink. Dentition is intact. NECK: Shows anterior throat supple without palpable lymphadenopathy noted. Swallow reflex symmetrical. CHEST: Shows normal on inspection. Breath sounds are clear bilaterally. HEART: Shows S1 and S2 clear. No murmurs auscultated. ABDOMEN: Soft, nontender, nondistended. BACK: Shows spine grossly in the midline. Well-healed surgical scarring noted in the lumbar distribution with some flattening. Lumbar lordotic curvature is normal, this is exaggerated thoracic kyphotic curvature. Lumbar paraspinous muscle shows symmetrical on inspection, on palpation shows some moderate tenderness diffusely in the lower lumbar distribution bilaterally only, but without asymmetry, without trigger points and without radiation. The patient has good rotational motion of lumbar spine, both laterally as well as extension and flexion without significant increase in pain. EXTREMITIES: Lower extremities show deep tendon reflexes at 1+ in the patellar and tendo calcaneus tendons. Motor exam is approximately 4 on a scale of 5, but symmetrical dorsiflexion and extension, quadriceps and hamstring flexion. Peripheral pulses are 1+ to posterior tibia. No peripheral edema is noted bilaterally. Options were discussed with the patient. The patient's old chart was reviewed as her current medication regimen updated. Current review of systems updated today as well. We will proceed with refilling the patient's medications. She has had appropriate K-TRACS reporting as well as appropriate urinalysis to date. We will refill the patient's medications for a 2-month period, morphine immediate release 30 mg and hydrocodone 7.5 mg with instructions, side effects to be aware of each of the medications. The patient will follow up in approximately 2 months or sooner as necessary. TASHIA RAINES MD DR: SONIA/anya JOB#: [id number] / [id number]
== END | disposition home or self-care (01) ==
LOC: PNCL 11:06
PROVIDERS: ATTEND Anesthesiology
DX: M51.16 Intervertebral disc disorders with radiculopathy, lumbar region (principal); M48.061 Spinal stenosis, lumbar region without neurogenic claudication; M96.1 Postlaminectomy syndrome, not elsewhere classified; M79.18 Myalgia, other site
CPT/HCPCS: G0463

== ENCOUNTER → 2020-02-18 | Outpatient (CLI) | payer MEDICARE ==
[2014-07-20 10:01] VITALS: BP 179/86
[~2020-02-18] MED LIST changes: +[UNRECOGNIZED DRUG - OTHER]
--- NOTE | 2020-02-18 11:45 | PAIN ---
DATE OF SERVICE: 02/18/2020 PROGRESS NOTE FOR PAIN CLINIC DIAGNOSES: 1. Lumbar radiculopathy with lumbar degenerative disk disease, lumbar spinal stenosis and lumbar post-laminectomy syndrome. 2. Myofascial pain. HISTORY OF PRESENT ILLNESS: The patient is a 69-year-old female who returns for followup status post medication management with both MSIR and hydrocodone. The patient reports she has been doing fairly well with the hydrocodone and has Tylenol. She is trying to decrease that because she had elevated liver enzymes on her last visit to her primary physician and we discussed this in some detail and we will change this to oxycodone without Tylenol, although she did have some difficulty with GI upset. We discussed taking this in place of the hydrocodone to avoid the Tylenol. The patient is willing to try this again. The patient reports still significant pain in low back, mid back as well as into the posterior gluteus and thighs and hips. She reports it is a 9 on a scale of 10 at its worse over the past week, 6 on average, 5 at its least and is a 6 today. The patient reports it is tight, shooting, aching, becoming more constant with activity, walking, standing, but the medication does decrease the pain by about a 75% improvement without significant side effects. The patient reports no new motor or sensory deficits, no new bowel or bladder incontinence reported overall. She is about 40% improved day-to-day. The patient reports she is sleeping well at night. Generally, it does not awaken her from sleep, but occasionally can. The patient reports no new changes or other complaints and no side effects as noted. PHYSICAL EXAMINATION: VITAL SIGNS: The patient's blood pressure is 124/76, pulse 68, respirations 18, temperature 97.9 degrees Fahrenheit, height is 5 feet 2 inches, weight is 169 pounds. GENERAL: The patient is awake, alert, oriented, appropriate, very pleasant demeanor. HEENT: Shows normocephalic, atraumatic. The patient wears eyeglasses. Extraocular movements are intact and symmetrical. Oral cavity shows mucous membranes moist and pink. Dentition is intact. NECK: Shows anterior throat supple without palpable lymphadenopathy noted. Swallow reflex symmetrical. CHEST: Shows normal on inspection. Breath sounds are clear bilaterally. HEART: Shows S1, S2 clear. No murmurs auscultated. ABDOMEN: Soft, nontender, nondistended. No palpable organomegaly is noted. No rebound or guarding demonstrated. BACK: Shows spine grossly in the midline, slight exaggerated thoracic kyphosis and minor flattening of lumbar lordotic curvature. Well-healed surgical scarring noted. Lumbar paraspinous muscle shows tender with palpation diffusely throughout the upper, middle and lower distribution of paraspinous muscles, but roughly symmetrical without trigger points, without radiation. The patient does show some limited rotational motion of lumbar spine, both laterally as well as extension and flexion with some moderate tenderness with extension, moderate tenderness with forward flexion at 45 degrees as well as some mild tenderness with right and left lateral rotation at 10 degrees. EXTREMITIES: The patient's lower extremities show deep tendon reflexes 1+ in the patellar and tendo-calcaneus tendons. Motor exam is approximately 4 on a scale of 5, but symmetrical. Peripheral pulses are 1+ posterior tibial. The patient is walking with a cane. She is holding her right hand and the patient has a slight shuffling gait. Options were discussed with the patient. The patient's old chart was reviewed as her current medication regimen updated. Current review of systems updated today as well. We will proceed with a refill of the patient's MSIR 30 mg up to 4 tablets daily. Also, we will change hydrocodone 7.5 mg 2 to 2 oxycodone without Tylenol 5 mg up to twice daily. The patient was given instruction as well as side effects to be aware with the medications. She has had appropriate K-TRACS reporting as well as appropriate urinalysis to date. We have a UA done today as routine screening and also have the patient return in approximately 2 months or sooner as necessary. TASHIA RAINES MD DR: SONIA/anya JOB#: [id number] / [id number]
== END | disposition home or self-care (01) ==
LOC: PNCL 10:43
PROVIDERS: ATTEND Anesthesiology
DX: M51.16 Intervertebral disc disorders with radiculopathy, lumbar region (principal); M79.18 Myalgia, other site
CPT/HCPCS: 99212; G0463

== ENCOUNTER → 2020-05-13 | Outpatient (CLI) | payer MEDICARE ==
[2014-07-20 10:01] VITALS: BP 179/86
--- NOTE | 2020-05-13 11:16 | PDOC ---
Progress Note - Pain Clinic Date of Service: DOS: DATE: 05/13/20 TIME: 11:05 Diagnosis: Dx: Lumbar radiculopathy with lumbar degenerative disc disease lumbar spinal stenosis and post lumbar laminectomy syndrome Myofascial pain History or Present Illness: HPI: 69-year-old female returns follow-up status post medication management with morphine immediate release and oxycodone. Patient also taking tizanidine for muscle relaxation. Patient reports he is doing fairly well on this we had changed her oxycodone from hydrocodone 2 months ago and she is doing much better with this now. Patient reports about 70% improvement overall with medications without significant side effects occasional constipation but is taking care with increased hydration and [id number] laxatives at times but is only infrequent. Patient reports she is not drinking caffeinated beverages anymore and this is helped as well. Patient reports pain in the low back and in the mid back some of the lower extremities mostly in the low back itself rated as a 10 on scale 10 is worse over the past week 8 on average 8 is least is 8 today. Patient ports aching tight shooting cramping and stabbing at times radiating and constant across the low back but rarely into the lower extremities. She reports it wakes her from sleep occasionally but not every night and generally is doing better with the medications and ability to do greater distance walking doing household activities recreational activities although low impact she does enjoy sketching drawing and painting which she is able to do fairly comfortably with the medication. Patient reports no fogginess no dysphoria nausea itching GI upset. Physical Exam: VS: Blood pressure is 106/62 pulse 73 respirations 18 temperature 90.3 F weight is 165 pounds PE: PHYSICAL EXAMINATION: GENERAL: The patient is awake, alert, oriented, appropriate, very pleasant demeanor HEENT: Shows normocephalic, atraumatic. Extraocular movements are intact and symmetrical. Oral cavity: Mucous membranes moist and pink. NECK: Shows anterior throat supple without palpable lymphadenopathy noted. Swallow reflex symmetrical. CHEST: Shows normal on inspection. Breath sounds are clear bilaterally, no rales rhonchi wheezes auscultated. HEART: Shows S1, S2 clear. No murmurs auscultated. ABDOMEN: Soft, nontender, nondistended, obese. No palpable organomegaly is noted. No rebound or guarding demonstrated. BACK: Shows spine grossly in the midline. Normal-appearing cervical lordotic curvature. Neck shows good rotation motion cervical spine both laterally greater than 45 degrees closer 9 degrees was full extension full for flexion without significant limitation or significant pain reported. Paraspinous musculature is moderately tender in the middle and lower distribution of the cervical paraspinous muscles but only diffusely without significant radiation. There is slightly increased thoracic kyphosis, some minor flattening of the lumbar lordotic curvature. Lumbar paraspinous muscles show symmetrical on inspection, on palpation shows some moderate tenderness diffusely throughout the upper, middle and lower distribution of the paraspinous muscles bilaterally and also into the lower thoracic paraspinous musculature, firm and tender, greater on the right than the left, but without specific trigger points, without radiation of pain. The patient has good rotational motion of the lumbar spine, both laterally as well as extension and flexion without significant difficulty. No tenderness over the spinous processes, sacrum or sacroiliac regions. EXTREMITIES: Lower extremities show deep tendon reflexes 1+ in the patellar and tendo calcaneus tendons. Motor exam is 4 on a scale of 5 with right dorsiflexion, extension, quadriceps and hamstring flexion and 4/5 on the left. Peripheral pulses are 1+ posterior tibial. No peripheral edema is noted bilaterally. Lower extremities are warm and dry to touch, equal in color and appearance. Upper extremities show deep tendon reflexes 2+ in the bicep and triceps tendons are equal motor exam is strong with marketing operations associate strength bicep tricep flexion rated at 5 out of 5 and symmetrical peripheral pulses are 2+ radial no peripheral edema in the upper extremities. SKIN: Shows warm and dry, good turgor. No edema. No sores, rashes or bruising throughout. Procedure: Procedure: Options were discussed with the patient. Patient chart was reviewed as her current medication regimen updated current review of systems updated today as well. We will refill patient's MSIR and oxycodone for a 2-month period. Patient had appropriate K Traks reporting as well as appropriate urinalyses to date, we will refill patient's medication 2 months schedule. Patient was given instructions will side effects beware of each of the medications and will follow-up in approximate 2 months or sooner as necessary. Medication Injected: Med Injected: None Condition at Discharge: Condition at Discharge: Condition at discharge is stable. TASHIA RAINES MD May 13, 2020 11:16
== END ==
LOC: PNCL 10:22
PROVIDERS: ATTEND Anesthesiology
DX: M51.16 Intervertebral disc disorders with radiculopathy, lumbar region (principal); M48.061 Spinal stenosis, lumbar region without neurogenic claudication; M79.18 Myalgia, other site; F17.210 Nicotine dependence, cigarettes, uncomplicated; Z88.2 Allergy status to sulfonamides; Z88.8 Allergy status to other drugs, medicaments and biological substances; Z79.899 Other long term (current) drug therapy
CPT/HCPCS: G0463

== ENCOUNTER → 2020-07-01 | Outpatient (CLI) | payer MEDICARE ==
[2014-07-20 10:01] VITALS: BP 179/86
[~2020-07-01] MED LIST changes: +IOHEXOL 180 MG/ML 10 ML VIAL. ONE; -MECL12.573 PO; +MECL12.574 PO; +OXYC5CAP PO; +methylPREDNISolone ACETATE 40 MG/ML VIAL. ONE; +methylPREDNISolone ACETATE 80 MG/ML VIAL. ONE
--- NOTE | 2020-07-01 10:50 | PDOC ---
Progress Note - Pain Clinic Date of Service: DOS: DATE: 07/01/20 TIME: 10:47 Diagnosis: Dx: Lumbar radiculopathy with lumbar degenerative disc disease lumbar spinal stenosis and lumbar postlaminectomy syndrome Myofascial pain History or Present Illness: HPI: 70-year-old female returns follow-up status post medication management with oxycodone and MS immediate release. Patient reports doing fairly well with this but there is having significant pain in the low back and bilateral lower extremities posterior gluteus posterior thighs mostly in the calf and into the feet as well as somewhat worse on the right than the left patient reports is getting worse with walking standing changing positions especially getting up in the morning and ambulating. Patient reports her pain is a 10 on scale 10 is worse over the past week 8 on average 6 its least and is an 8 today. Patient scribes aching sharp dull and tight in the back shooting in the legs bilaterally burning and cramping the legs as well which is becoming more constant with a ra diating quality and severe with walking. Patient reports no specific side effects with her medications and is doing fairly well with these with about a 70% improvement overall but the pain in the back is becoming much more noticeable and radiating to the lower extremities as it had previously. Patient ports no bowel or bladder incontinence no local or sensory loss. Physical Exam: VS: Blood pressure is 118/70 pulse 70 respirations 18 temperature 90.5 F height is 5 feet 2 inches weight is 168 pounds PE: PHYSICAL EXAMINATION: GENERAL: The patient is awake, alert, oriented, appropriate, very pleasant demeanor HEENT: Shows normocephalic, atraumatic. Extraocular movements are intact and symmetrical. Oral cavity: Mucous membranes moist and pink. Dentition is intact. NECK: Shows anterior throat supple without palpable lymphadenopathy noted. Swallow reflex symmetrical. CHEST: Shows normal on inspection. Breath sounds are clear bilaterally, no rales rhonchi or wheezes. HEART: Shows S1, S2 clear. No murmurs auscultated. ABDOMEN: Soft, nontender, nondistended, obese. No palpable organomegaly is noted. No rebound or guarding demonstrated. BACK: Shows spine grossly in the midline. Normal-appearing cervical lordotic curvature. There is slightly increased thoracic kyphosis, some minor flattening of the lumbar lordotic curvature. Well-healed midline surgical scarring is noted. Lumbar paraspinous muscles show symmetrical on inspection, on palpation shows some moderate tenderness diffusely throughout the upper, middle and lower distribution of the paraspinous muscles bilaterally and also into the lower thoracic paraspinous musculature, firm and tender, without specific trigger points, without radiation of pain. The patient has good rotational motion of the lumbar spine, both laterally as well as extension and flexion without significant difficulty. No tenderness over the spinous processes, sacrum or sacroiliac regions. EXTREMITIES: Lower extremities show deep tendon reflexes 1+ in the patellar and tendo calcaneus tendons. Motor exam is 4 on a scale of 5 with right dorsiflexion, extension, quadriceps and hamstring flexion and 4/5 on the left. Peripheral pulses are 1+ posterior tibial. No peripheral edema is noted bilaterally. Lower extremities are warm and dry to touch, equal in color and appearance.]. SKIN: Shows warm and dry, good turgor. No edema. No sores, rashes or bruising throughout. Procedure: Procedure: Options discussed with the patient. Patient chart was reviewed as her current medication regimen updated current review of systems updated today as well. We will proceed with a lumbar epidural steroid injection today with fluoroscopic guidance as the first in the series. Risks were discussed including but not limited to: Bleeding, infection, possibility of epidural hematoma and subsequent neurological compromise, dural puncture, headaches, spinal cord and/or nerve damage, side effects of steroid medication, and poor results regarding pain control. Patient understands wished to proceed. Patient also be given refill prescription for oxycodone as well as MSIR for 2-month. As she has had appropriate K tracts reporting as well as appropriate urinalyses to date. Debby ruiz was given instructions will side effects with each of the medications. Patient to follow-up in approximate 2 months or sooner if necessary. Medication Injected: Med Injected: Procedure is lumbar epidural steroid injection under local anesthetic using sterile prep and drape at the L5-S1 level using C-arm fluoroscopic guidance in both AP and lateral views medications injected is 120 mg Depo-Medrol + 10 mL preservative-free normal saline and 2 mL contrast- condition at discharge is stable patient tolerated procedure well had no complications. Condition at Discharge: Condition at Discharge: Condition at discharge is stable, patient tolerated procedure well and had no complications. TASHIA RAINES MD Jul 01, 2020 10:50
== END | disposition home or self-care (01) ==
LOC: PNCL 10:06
PROVIDERS: ATTEND Anesthesiology
DX: M51.16 Intervertebral disc disorders with radiculopathy, lumbar region (principal); M48.061 Spinal stenosis, lumbar region without neurogenic claudication; M96.1 Postlaminectomy syndrome, not elsewhere classified; M79.18 Myalgia, other site; F17.210 Nicotine dependence, cigarettes, uncomplicated; Z79.82 Long term (current) use of aspirin; Z79.899 Other long term (current) drug therapy; Z88.1 Allergy status to other antibiotic agents; Z88.2 Allergy status to sulfonamides; Z91.040 Latex allergy status; Z88.8 Allergy status to other drugs, medicaments and biological substances
CPT/HCPCS: 62323; J1030; J1040; Q9965

== ENCOUNTER → 2020-08-10 | Outpatient (CLI) | payer MEDICARE ==
[2014-07-20 10:01] VITALS: BP 179/86
[~2020-08-10] MED LIST changes: +BUPIVACAINE MPF 0.25% 10 ML VIAL. ONE; +DULO20CA PO; -IOHEXOL 180 MG/ML 10 ML VIAL. ONE; +LANS15CA78 PO; -MECL12.574 PO; +MECL12.582 PO; +SENN8.6T11 PO; -methylPREDNISolone ACETATE 80 MG/ML VIAL. ONE
--- NOTE | 2020-08-10 09:53 | PDOC ---
Progress Note - Pain Clinic Date of Service: DOS: DATE: 08/10/20 TIME: 09:49 Diagnosis: Dx: Lumbar radiculopathy with lumbar degenerative disc disease lumbar spinal stenosis and post lumbar laminectomy syndrome Myofascial pain History or Present Illness: HPI: 70-year-old female returns to follow-up status post lumbar epidural steroid injection x1 on July 01, 2020. Patient reports she did very well initially but now is having significant pain in the mid upper back as well as the low back which is very tight and burning pain in the bilateral base of the neck shoulders upper back mid back and low back especially. Patient reports is a 10 on scale 10 is worse over the past week 10 on average 8 its least is a 10 today describes radiating constant severe tingling sharp and dull tight very tight and shooting in the mid upper back and the neck. Reports no new motor or sensory deficits and still feels she is doing better after her epidural injection as the lower extremity pain is much better but that back and muscular pain is become much worse. Patient ports been hard for her to get up out of bed in the morning hard for her to sleep at night hard for the change positions especially getting up from a seated position and with walking. Patient reports no new motor or sensory deficits no bowel or bladder incontinence. Physical Exam: VS: Blood pressure is 108/68 pulse 75 respirations 18 temperature 98.0 F height is 5 feet 2 inches weight is 177 pounds PE: PHYSICAL EXAMINATION: GENERAL: The patient is awake, alert, oriented, appropriate, very pleasant demeanor HEENT: Shows normocephalic, atraumatic. Extraocular movements are intact and symmetrical. NECK: Shows anterior throat supple without palpable lymphadenopathy noted. Swa llow reflex symmetrical. CHEST: Shows normal on inspection. Breath sounds are clear bilaterally, no rales or rhonchi auscultated. HEART: Shows S1, S2 clear. No murmurs auscultated. ABDOMEN: Soft, nontender, nondistended, obese. No palpable organomegaly is noted. No rebound or guarding demonstrated. BACK: Shows spine grossly in the midline. Normal-appearing cervical lordotic cu rvature. There is slightly increased thoracic kyphosis, some minor flattening of the lumbar lordotic curvature. Lumbar paraspinous muscles show symmetrical on inspection, on palpation shows some moderate tenderness diffusely throughout the upper, middle and lower distribution of the paraspinous muscles bilaterally patient shows some moderate hypertrophy of the right mid thoracic paraspinous posterior compared to the left with palpation there is significant tenderness throughout the cervical paraspinous posture trapezius musculature and the rhomboid musculature as well as the right greater than left thoracic paraspinous musculature with some hypertrophy noted on the right as stated. Patient shows significant tenderness in the lumbar paraspinous muscles as well but roughly symmetrical with very firm ropelike mature throughout the cervical thoracic and lumbar paraspinous muscles consistent with trigger point areas of musculature very firm and tender but without specific radiation. The patient has good rotational motion of the lumbar spine, both laterally as well as extension and flexion EXTREMITIES: Lower extremities show deep tendon reflexes 1+ in the patellar and tendo calcaneus tendons. Motor exam is 4 on a scale of 5 with right dorsiflexion, extension, quadriceps and hamstring flexion and 4/5 on the left. Peripheral pulses are 1+ posterior tibial. No peripheral edema is noted bilaterally. Lower extremities are warm and dry to touch, equal in color and appearance. SKIN: Shows warm and dry, good turgor. No edema. No sores, rashes or bruising throughout. Procedure: Procedure: Options discussed with the patient. Patient chart reviews her current medication regimen updated current review of systems updated today as well. We will proceed with trigger point injections of the identified musculature. Risks are discussed including but not limited to bleeding infection possibility of intravascular injection sequelae pneumothorax side effects of steroid medication spread local acetic numbness as well as portal scarring pain control. Patient understands wished to proceed patient return to clinic in approximately 2 weeks for follow-up was counseled as to return appointment activity level and side effects to be aware of. Medication Injected: Med Injected: Under sterile prep and drape patient in sitting position trigger points were identified in the cervical paraspinous posterior bilateral trapezius muscular bilateral thoracic paraspinous muscles and bilateral lumbar paraspinous musculature and injected with 25-gauge needle after negative aspiration each injection site total of 12 cc 0.25% bupivacaine and 40 mg Depo-Medrol. Patient tolerated procedure well and had no complications. Condition at Discharge: Condition at Discharge: Condition at discharge stable, patient tolerated the procedure well and had no complications. TASHIA RAINES MD Aug 10, 2020 09:53
== END | disposition home or self-care (01) ==
LOC: PNCL 09:20
PROVIDERS: ATTEND Anesthesiology
DX: M51.16 Intervertebral disc disorders with radiculopathy, lumbar region (principal); M48.061 Spinal stenosis, lumbar region without neurogenic claudication; M96.1 Postlaminectomy syndrome, not elsewhere classified; M79.18 Myalgia, other site; F17.210 Nicotine dependence, cigarettes, uncomplicated; Z79.82 Long term (current) use of aspirin; Z79.899 Other long term (current) drug therapy; Z98.890 Other specified postprocedural states; Z72.89 Other problems related to lifestyle; Z88.1 Allergy status to other antibiotic agents; Z88.2 Allergy status to sulfonamides; Z91.040 Latex allergy status; Z88.8 Allergy status to other drugs, medicaments and biological substances
CPT/HCPCS: 20553; J1030; J3490

== ENCOUNTER → 2020-09-05 | Outpatient (CLI) | payer MEDICARE ==
[2014-07-20 10:01] VITALS: BP 179/86
[~2020-09-05] MED LIST changes: -BUPIVACAINE MPF 0.25% 10 ML VIAL. ONE; -methylPREDNISolone ACETATE 40 MG/ML VIAL. ONE
--- NOTE | 2020-09-05 17:17 | KCIC ---
MR LUMBAR SPINE WO [id number] Date: 09/05/2020 2:40 PM Indication: LUMBAR RADICULOPATHY. Prior surgery. Acute LBP radaiting up thoracic. Bilateral leg numb ness. Twisting injury Comparison: 08/03/2019. Technique: Multi-planar multi-weighted magnetic resonance imaging of the lumbar spine was performed w ithout intravenous contrast using the standard lumbar spine protocol. FINDINGS: Right convex lumbar curvature. Trace retrolisthesis at L2-3 and L3-4. No acute fracture. Moderate to severe multilevel degenerative disc desiccation and disc height loss. Multilevel degenerative endplat e edema. The conus terminates at a normal level. No abnormal signal is seen within the visualized distal spina l cord. No clumping of intrathecal nerve roots. No soft tissue abnormality in the visualized abdomen or pelvis. T12-L1: Disc bulge with right paracentral protrusion. Mild facet arthropathy. No significant spinal s tenosis. Mild right lateral recess narrowing. No neural foraminal narrowing. L1-L2: Disc bulge with left far lateral protrusion. Mild facet arthropathy. No significant spinal alex nosis. Mild left lateral recess narrowing. No neural foraminal narrowing. L2-L3: Disc bulge with left far lateral protrusion. Mild right and moderate left facet arthropathy. M ild spinal canal stenosis. Moderate to severe left lateral recess narrowing. Moderate left neural for aminal narrowing. L3-L4: Posterior decompression. Disc bulge with lateral protrusions. Moderate facet arthropathy. Mode rate to severe spinal stenosis and lateral recess narrowing. Moderate bilateral neural foraminal narr owing. L4-L5: Posterior decompression. Disc bulge with left lateral protrusion. Severe right and moderate le ft facet arthropathy. Ligamentum flavum thickening. Mild spinal canal stenosis. Mild bilateral neural foraminal narrowing. L5-S1: Disc bulge with right foraminal/lateral protrusion. Severe right facet arthropathy. No signifi cant spinal stenosis. Moderate right neural foraminal narrowing. IMPRESSION: Dextroscoliosis and moderate to severe lumbar spondylosis, not significantly progressed from the prio r exam. Electronically signed by: Clint Charles MD (09/05/2020 5:14 PM) [id number]
== END | disposition home or self-care (01) ==
LOC: KCIC MRI 14:21
PROVIDERS: ATTEND Anesthesiology
DX: M47.26 Other spondylosis with radiculopathy, lumbar region (principal); M48.061 Spinal stenosis, lumbar region without neurogenic claudication; F17.210 Nicotine dependence, cigarettes, uncomplicated; Z79.82 Long term (current) use of aspirin; Z79.899 Other long term (current) drug therapy; Z98.890 Other specified postprocedural states
CPT/HCPCS: 72148

== ENCOUNTER → 2020-09-15 | Outpatient (CLI) | payer MEDICARE ==
[2014-07-20 10:01] VITALS: BP 179/86
[~2020-09-15] MED LIST changes: -DULO20CA PO; +IOHEXOL 180 MG/ML 10 ML VIAL. ONE; +MECL12.574 PO; -MECL12.582 PO; +methylPREDNISolone ACETATE 40 MG/ML VIAL. ONE; +methylPREDNISolone ACETATE 80 MG/ML VIAL. ONE
--- NOTE | 2020-09-15 14:22 | PDOC ---
Progress Note - Pain Clinic Date of Service: DOS: DATE: 09/15/20 TIME: 14:17 Diagnosis: Dx: Lumbar radiculopathy with lumbar degenerative disc disease lumbar spinal stenosis and post lumbar laminectomy syndrome Myofascial pain History or Present Illness: HPI: 70-year-old female returns follow-up status post medication management with MS IR and oxycodone as well as Zanaflex for muscle relaxation. Patient reports he was doing fairly well with this with about a 50 to 60% improvement with the pain medicine although she called earlier in the week with significant complaints of increased low back pain and bilateral lower extremities we had achieved a MRI scan of the lumbar spine on September 05 as her pain was beginning to increase then increase significantly over the past week or so patient MRI scan was discussed with her today showing posterior decompression at L3-4 and L4-5 as well as L5-S1 disc bulge with right foraminal lateral protrusion L2-3 with disc bulge with far left lateral protrusion, as well. Patient reports the pain is increasing with walking standing changing positions in the low back and bilateral lower extremities mostly the posterior gluteus posterior thighs and calves to the feet right slightly worse than the left but also some pain in the anterior groin and anterior thigh on the left side as well patient reports her pain is a ten on scale ten is worse over the past week ten on average eight its least is a ten today patient reports aching sharp tingling in the legs burning and cramping dull and tight alternating in the back and shooting in the lower extremities. Patient reports no new motor or sensory deficits no new bowel or bladder incontinence or new side effects with her medications. Physical Exam: VS: Blood pressure is 126/82 pulse seventy-eight [id number], temperature 98.6 F weight is 161 pounds PE: PHYSICAL EXAMINATION: GENERAL: The patient is awake, alert, oriented, appropriate, very pleasant demeanor HEENT: Shows normocephalic, atraumatic. Extraocular movements are intact and symmetrical. Oral cavity: Mucous membranes moist and pink. Dentition is intact. NECK: Shows anterior throat supple without palpable lymphadenopathy noted. Swallow reflex symmetrical. CHEST: Shows normal on inspection. Breath sounds are clear bilaterally, no rales or rhonchi auscultated. HEART: Shows S1, S2 clear. No murmurs auscultated. ABDOMEN: Soft, nontender, nondistended, obese. BACK: Shows spine grossly in the midline. Normal-appearing cervical lordotic curvature. There is increased thoracic kyphosis, flattening of the lumbar lordotic curvature, with well-healed midline surgical scarring noted. Lumbar paraspinous muscles show symmetrical on inspection, on palpation shows some moderate tenderness diffusely throughout the upper, middle and lower distribution of the paraspinous muscles bilaterally, but without specific trigger points, without radiation of pain. The patient has good rotational motion of the lumbar spine, both laterally as well as extension and flexion without significant difficulty but with moderate discomfort.. EXTREMITIES: Lower extremities show deep tendon reflexes 1+ in the patellar and tendo calcaneus tendons. Motor exam is four on a scale of 5 with right dorsiflexion, extension, quadriceps and hamstring flexion and four/5 on the left. Peripheral pulses are 1+ posterior tibial. No peripheral edema is noted bilaterally. Lower extremities are warm and dry to touch, equal in color and appearance. SKIN: Shows warm and dry, good turgor. No edema. No sores, rashes or bruising throughout. Procedure: Procedure: Options were discussed with the patient. Patient chart reviews her current medication regimen updated current review of systems updated today as well. We will proceed with a lumbar epidural steroid injection today with fluoroscopic guidance. Risks were discussed including but not limited to: Bleeding, infection, possibility of epidural hematoma and subsequent neurological compromise, dural puncture, headaches, spinal cord and/or nerve damage, side effects of steroid medication, and poor results regarding pain control. Patient understands and wished to proceed. Also with refills MSIR and Zanaflex. Patient was given instructions well side effects beware with each of the medications. Patient had appropriate K tracks report as well as appropriate urinalyses to date we will have urinalysis done today as part of routine screening as well as renewal of narcotic contract patient was given a copy of this as well. Patient return to clinic in approximately 2 weeks as scheduled. Medication Injected: Med Injected: Procedure is lumbar epidural steroid injection under local anesthetic using sterile prep and drape at the L5-S1 level using C-arm fluoroscopic guidance in both AP and lateral views medications injected is one hundred twenty mg Depo- Medrol + ten mL preservative-free normal saline and 2 mL contrast- condition at discharge is stable patient tolerated procedure well had no complications. Condition at Discharge: Condition at Discharge: Additional discharge stable, patient tolerated procedure well and had no complications. TASHIA RAINES MD Sep 15, 2020 14:22
--- NOTE | 2020-09-15 14:23 | PDOC4 ---
PROCEDURE Procedure Patient was consented for lumbar epidural steroid injection. Risks were dis cussed including but not limited to: Bleeding, infection, possibility of epidural hematoma and subsequent neurological compromise, dural puncture, headaches, spinal cord and/or nerve damage, side effects of steroid medication, and poor results regarding pain control. Patient understands and wished to proceed. Procedure is lumbar epidural steroid injection under local anesthetic using sterile prep and drape at the L5-S1 level using C-arm fluoroscopic guidance in both AP and lateral views medications injected is one hundred and twenty mg Depo-Medrol + ten mL preservative-free normal saline and 2 mL contrast- condition at discharge is stable patient tolerated procedure well had no complications. TASHIA RAINES MD Sep 15, 2020 14:23
== END | disposition home or self-care (01) ==
LOC: PNCL 13:16
PROVIDERS: ATTEND Anesthesiology
DX: M51.16 Intervertebral disc disorders with radiculopathy, lumbar region (principal); M48.061 Spinal stenosis, lumbar region without neurogenic claudication; M96.1 Postlaminectomy syndrome, not elsewhere classified; M79.10 Myalgia, unspecified site; F17.210 Nicotine dependence, cigarettes, uncomplicated; Z79.82 Long term (current) use of aspirin; Z79.899 Other long term (current) drug therapy; Z72.89 Other problems related to lifestyle; Z98.890 Other specified postprocedural states; Z88.1 Allergy status to other antibiotic agents; Z88.2 Allergy status to sulfonamides; Z91.040 Latex allergy status; Z88.8 Allergy status to other drugs, medicaments and biological substances
CPT/HCPCS: 62323; J1030; J1040; Q9965

== ENCOUNTER → 2020-11-10 | Outpatient (CLI) | payer MEDICARE ==
[2014-07-20 10:01] VITALS: BP 179/86
[~2020-11-10] MED LIST changes: -MECL12.574 PO; +MECL12.582 PO
--- NOTE | 2020-11-10 14:13 | PDOC ---
Progress Note - Pain Clinic Date of Service: DOS: DATE: 11/10/20 TIME: 14:10 Diagnosis: Dx: Lumbar radiculopathy with lumbar degenerative disc disease lumbar spinal stenosis and lumbar postlaminectomy syndrome Myofascial pain History or Present Illness: HPI: 70-year-old female returns for follow-up status post medication management with MSIR and Zanaflex also had lumbar epidural steroid injection last visit patient reports she did very well for about 2 weeks the pain is reduced by about 75+ percent patient reports after that time the pain gradually returned in the low back bilateral lower extremities posterior gluteus posterior thighs posterior calves and feet with a burning aching sensation in the back also shooting and radiating lower extremities patient reports is worse with walking standing changing positions better with sitting or laying down patient reports her pain is a 10 on scale 10 is worse over the past week 10 on average 8 at its least is a 10 today patient reports no side effects with the medication but significant pain in the low back and legs which is only decreased with the medication by about 70 to 75%. She reports no new motor or sensory deficits no new bowel or bladder incontinence or other complaints. Physical Exam: VS: Blood pressure 107/56 pulse 74 respirations 18 temperature 98.6 F, weight is 178 pounds PE: PHYSICAL EXAMINATION: GENERAL: The patient is awake, alert, oriented, appropriate, very pleasant demeanor HEENT: Shows normocephalic, atraumatic. Extraocular movements are intact and symmetrical. Oral cavity: Mucous membranes moist and pink. Dentition is intact. NECK: Shows anterior throat supple without palpable lymphadenopathy noted. Swallow reflex symmetrical. CHEST: Shows normal on inspection. Breath sounds are clear bilaterally. HEART: Shows S1, S2 clear. No murmurs auscultated. ABDOMEN: Soft, nontender, nondistended. No rebound or guarding demonstrated. BACK: Shows spine grossly in the midline. Normal-appearing cervical lordotic cu rvature. There is slightly increased thoracic kyphosis, some minor flattening of the lumbar lordotic curvature. Well-healed surgical scars noted in the midline. Lumbar paraspinous muscles show symmetrical on inspection, on palpation shows some moderate tenderness diffusely throughout the upper, middle and lower distribution of the paraspinous muscles, but without specific trigger points, without radiation of pain. The patient has good rotational motion of the lumbar spine, both laterally as well as extension and flexion without significant difficulty. No tenderness over the spinous processes, sacrum or sacroiliac regions. EXTREMITIES: Lower extremities show deep tendon reflexes 1+ in the patellar and tendo calcaneus tendons. Motor exam is 4 on a scale of 5 with right dorsiflexion, extension, quadriceps and hamstring flexion and 4/5 on the left. Peripheral pulses are 1+ posterior tibial. 1+ peripheral edema is noted bilaterally. Lower extremities are warm and dry to touch, equal in color and appearance. SKIN: Shows warm and dry, good turgor. No edema. No sores, rashes or bruising throughout. Procedure: Procedure: Options were discussed with patient. Patient chart reviews her current medication regimen updated current review of systems updated today as well. We will proceed with a second in the series lumbar epidural steroid injection stable fluoroscopic guidance. Risks were discussed including but not limited to: Bleeding, infection, possibility of epidural hematoma and subsequent neurological compromise, dural puncture, headaches, spinal cord and/or nerve damage, side effects of steroid medication, and poor results regarding pain control. Patient understands and wished to proceed. Patient also will have refill medications of MSIR and Zanaflex. Patient is had appropriate K tracks report as well as appropriate urinalyses to date and we will make this for a 2- month refill. Patient is given instructions well side effects aware of each of the medications will follow-up in approximate 2 months or sooner if necessary. Medication Injected: Med Injected: Procedure is lumbar epidural steroid injection under local anesthetic using sterile prep and drape at the L5-S1 level using C-arm fluoroscopic guidance in both AP and lateral views medications injected is 120 mg Depo-Medrol + 10 mL preservative-free normal saline and 2 mL contrast- condition at discharge is stable patient tolerated procedure well had no complications. Condition at Discharge: Condition at Discharge: Condition at discharge stable, patient alert procedure well and had no complications. TASHIA RAINES MD Nov 10, 2020 14:13
== END | disposition home or self-care (01) ==
LOC: PNCL 13:18
PROVIDERS: ATTEND Anesthesiology
DX: M51.16 Intervertebral disc disorders with radiculopathy, lumbar region (principal); M48.061 Spinal stenosis, lumbar region without neurogenic claudication; M96.1 Postlaminectomy syndrome, not elsewhere classified; M79.18 Myalgia, other site; F17.210 Nicotine dependence, cigarettes, uncomplicated; Z79.82 Long term (current) use of aspirin; Z79.899 Other long term (current) drug therapy; Z98.890 Other specified postprocedural states; Z88.2 Allergy status to sulfonamides; Z91.040 Latex allergy status; Z88.1 Allergy status to other antibiotic agents; Z88.8 Allergy status to other drugs, medicaments and biological substances; Z72.89 Other problems related to lifestyle
CPT/HCPCS: 62323; J1030; J1040; Q9965

== ENCOUNTER → 2020-12-13 | Outpatient (CLI) | payer MEDICARE ==
[2014-07-20 10:01] VITALS: BP 179/86
[~2020-12-13] MED LIST changes: +BUPIVACAINE MPF 0.25% 30 ML VIAL. ONE; +DULO20CA PO; -IOHEXOL 180 MG/ML 10 ML VIAL. ONE; -methylPREDNISolone ACETATE 80 MG/ML VIAL. ONE
--- NOTE | 2020-12-13 11:54 | PDOC ---
Progress Note - Pain Clinic Date of Service: DOS: DATE: 12/13/20 TIME: 11:50 Diagnosis: Dx: Lumbar radiculopathy with lumbar degenerative disc disease lumbar spinal stenosis and lumbar postlaminectomy syndrome Myofascial pain History or Present Illness: HPI: 70-year-old female returns follow-up status post lumbar epidural 2 injections x 3 most recently November 10, 2020. Patient reports did very well near 100% improvement for the first 3 weeks pain returning now in the low back but more in the musculature now it is feels that it is tight and spastic more than the in the back with any radiating pain patient reports the pain in the lower extremities is much better the pain in the back hours worse with standing changing position especially standing for prolonged periods greater than 15 to 20 minutes patient reports is better with sitting or laying down does not awaken her from sleep at night feels tight and spastic in the low back patient rates as a 10 on scale 10 is worse over the past week 9/7 its least 9 today patient describes aching sharp tight shooting at times radiating occasionally across the low back with burning and cramping and stabbing. Patient reports no new motor or sensory deficits no new bowel or bladder incontinence or other complaints. Physical Exam: VS: Blood pressure is 137/77 pulse 75 respirations 18 temperature 98.2 F height is 5 feet 2 inches weight is 173 pounds PE: PHYSICAL EXAMINATION: GENERAL: The patient is awake, alert, oriented, appropriate, very pleasant demeanor HEENT: Shows normocephalic, atraumatic. Extraocular movements are intact and symmetrical. Oral cavity: Mucous membranes moist and pink. NECK: Shows anterior throat supple without palpable lymphadenopathy noted. Swallow reflex symmetrical. CHEST: Shows normal on inspection. Breath sounds are clear bilaterally, no rales or rhonchi. HEART: Shows S1, S2 clear. No murmurs auscultated. ABDOMEN: Soft, nontender, nondistended, obese. No palpable organomegaly is noted. No rebound or guarding demonstrated. BACK: Shows spine grossly in the midline. Normal-appearing cervical lordotic curvature. There is slightly increased thoracic kyphosis, some flattening of the lumbar lordotic curvature. Well-healed midline surgical scarring is again n oted. Lumbar paraspinous muscles show symmetrical on inspection, on palpation shows some moderate to severe tenderness throughout the upper, middle and lower distribution of the paraspinous muscles in the lower thoracic and upper middle and lower distribution of the lumbar paraspinous muscles very firm ropelike musculature very tender consistent with trigger point areas of musculature bilaterally somewhat more tender on the right than the left without radiation bilaterally. The patient has good rotational motion of the lumbar spine, both laterally as well as extension and flexion without significant difficulty. No tenderness over the spinous processes, sacrum or sacroiliac regions. EXTREMITIES: Lower extremities show deep tendon reflexes 1 in the patellar and tendo calcaneus tendons. Motor exam is 4 on a scale of 5 with right dorsiflexion, extension, quadriceps and hamstring flexion and 4/5 on the left. Peripheral pulses are 1+ posterior tibial. No peripheral edema is noted bilaterally. Lower extremities are warm and dry to touch, equal in color and appearance. SKIN: Shows warm and dry, good turgor. No edema. No sores, rashes or bruising throughout. Procedure: Procedure: Options were discussed with the patient. Patient's old chart was reviewed as her current medication regimen updated current review of systems updated today as well. We will proceed with trigger point injections of the identified musculature in the bilateral thoracic paraspinous posterior bilateral lumbar paraspinous posterior bilateral gluteus musculature. Risks discussed including but not limited to bleeding infection possibility of intravascular injection sequelae spread local anesthetic numbness side effects steroid medication exposure fluoroscopy pneumothorax and portals regarding pain control. Patient understands wished to proceed. Patient return to clinic in approximately 4 weeks for follow-up, was counseled as return appointment activity level and side effects to be aware of. Medication Injected: Med Injected: Patient sitting position under sterile prep and drape, trigger point areas i dentified in the bilateral thoracic paraspinous posture bilateral lumbar paraspinous muscle bilateral gluteus musculature and injected after negative aspiration each injection site, total of 12 cc 0.25% bupivacaine and total of 40 mg Depo-Medrol. Patient tolerated the procedure well and had no complications. Condition at Discharge: Condition at Discharge: Condition at discharge is stable, patient already procedure well and had no complications. TASHIA RAINES MD December 13, 2020 11:54
--- NOTE | 2020-12-13 11:55 | PDOC4 ---
PROCEDURE Procedure Patient was consented for trigger point injections. Risk were discussed inc luding but not limited to bleeding infection possibility of intravascular injection sequelae spread local anesthetic numbness pneumothorax side effects of steroid medication and poor results regarding pain control. Patient understands wished to proceed. Patient sitting position under sterile prep and drape, trigger point areas identified in the bilateral thoracic paraspinous posture bilateral lumbar paraspinous muscle bilateral gluteus musculature and injected after negative aspiration each injection site, total of 12 cc 0.25% bupivacaine and total of 40 mg Depo-Medrol. Patient tolerated the procedure well and had no complications. TASHIA RAINES MD December 13, 2020 11:55
== END | disposition home or self-care (01) ==
LOC: PNCL 11:19
PROVIDERS: ATTEND Anesthesiology
DX: M51.16 Intervertebral disc disorders with radiculopathy, lumbar region (principal); M48.061 Spinal stenosis, lumbar region without neurogenic claudication; M96.1 Postlaminectomy syndrome, not elsewhere classified; M79.18 Myalgia, other site; F17.210 Nicotine dependence, cigarettes, uncomplicated; Z79.82 Long term (current) use of aspirin; Z79.899 Other long term (current) drug therapy; Z72.89 Other problems related to lifestyle; Z88.1 Allergy status to other antibiotic agents; Z88.2 Allergy status to sulfonamides; Z91.040 Latex allergy status; Z88.8 Allergy status to other drugs, medicaments and biological substances
CPT/HCPCS: 20553; J1030; J3490

== ENCOUNTER → 2021-01-09 | Outpatient (CLI) | payer MEDICARE ==
[2014-07-20 10:01] VITALS: BP 179/86
--- NOTE | 2021-01-09 14:34 | PDOC ---
Progress Note - Pain Clinic Date of Service: DOS: DATE: 01/09/21 TIME: 14:29 Diagnosis: Dx: Lumbar degenerative disc disease lumbar spinal stenosis lumbar spondylosis and lumbar postlaminectomy syndrome Myofascial pain History or Present Illness: HPI: 70-year-old female returns for follow-up status post trigger point injections of the bilateral thoracic and lumbar paraspinous musculature as well as the bilateral gluteus musculature on December 13. Patient did very well reports she had about 85% improvement initially now still about 40% improved to this day. Patient reports her pain is returning however in the low back bilaterally somewhat worse on the right than left also in the mid back on the right becoming more spastic and tight with activity initially she was in much better with distance walking doing household activities travel with greater ease and comfort sleeping better at night still does not awaken her from sleep most nights patient reports the pain is a 10 on scale 10 is worse over the past week 10 on average and 8 its least is an 8 today comes aching sharp dull tight shooting across the low back burning and stabbing and cramping can be severe and constant as well with activity. Patient reports no new motor or sensory deficits no new bowel or bladder incontinence or other complaints. Patient also with medical management taking MS IR with good results in approximate 70% improvement with the medications alone without any specific side effects. Physical Exam: VS: Blood pressure is 124/75 pulse 84 respirations 18 temperature is 98.0 F height is 2 inches weight is 175 PE: PHYSICAL EXAMINATION: GENERAL: The patient is awake, alert, oriented, appropriate, very pleasant demeanor HEENT: Shows normocephalic, atraumatic. Extraocular movements are intact and symmetrical. Oral cavity: Mucous membranes moist and pink. Dentition is intact. NECK: Shows anterior throat supple without palpable lymphadenopathy noted. Swallow reflex symmetrical. CHEST: Shows normal on inspection. Breath sounds are clear bilaterally. HEART: Shows S1, S2 clear. No murmurs auscultated. ABDOMEN: Soft, nontender, nondistended, obese BACK: Shows spine grossly in the midline. Normal-appearing cervical lordotic curvature. There is slightly increased thoracic kyphosis, some minor flattening of the lumbar lordotic curvature. Lumbar paraspinous muscles show symmetrical on inspection, on palpation shows some moderate tenderness diffusely throughout the upper, middle and lower distribution of the paraspinous muscles, with significant tenderness in the right greater than left thoracic paraspinous musculature as well as the right greater than left lumbar paraspinous muscle very firm ropelike muscular consistent with trigger point areas of musculature also into the superior aspect of the gluteus musculature bilaterally again worse on the right side but without radiation but with very firm ropelike musculature consistent with areas of trigger point musculature., without radiation of pain. No tenderness over the spinous processes, sacrum or sacroiliac regions. EXTREMITIES: Lower extremities show deep tendon reflexes 1 in the patellar and tendo calcaneus tendons. Motor exam is 4 on a scale of 5 with right dorsiflexion, extension, quadriceps and hamstring flexion and 4/5 on the left. Peripheral pulses are 1 posterior tibial. No peripheral edema is noted bilaterally. Lower extremities are warm and dry. SKIN: Shows warm and dry, good turgor. No edema. No sores, rashes or bruising throughout. Procedure: Procedure: Options were discussed with patient. Patient chart reviews her current medication regimen updated current review of systems updated today as well. We will proceed with trigger point injection of the identified musculature. Risk were discussed including but not limited to bleeding infection possibility of intravascular injection sequelae pneumothorax side effects of steroid medication spread of local anesthetic numbness as well as poor results regarding pain control. Patient understands wished to proceed. Patient return to the clinic in approximately 4 weeks for follow-up, was counseled as return appointment activity level and side effects beware. Patient is given refill prescription for MS IR as well as Zanaflex as she has had appropriate K tracks reporting as well as appropriate urinalyses to date we will make this for 2-month refill doug ent was given instructions well side effects beware of these of the medications. Medication Injected: Med Injected: Patient sitting position under sterile prep and drape trigger point areas were identified in the thoracic paraspinous posterior bilaterally lumbar paraspinous muscle bilateral and gluteus musculature bilaterally using 25-gauge needle after negative aspiration each injection site total of 14 cc 0.25% bupivacaine and total of 40 mg Depo-Medrol were utilized and trigger point injections. Patient tolerated the procedure well and had no complications. Condition at Discharge: Condition at Discharge: Condition at discharge stable, patient alert procedure well and had no complications. TASHIA RAINES MD Jan 09, 2021 14:34
--- NOTE | 2021-01-09 14:35 | PDOC4 ---
PROCEDURE Procedure Patient was consented for trigger point injections. Risk were discussed inc luding but not limited to bleeding infection possibility of intravascular injection sequelae spread local anesthetic numbness pneumothorax side effects of steroid medication portals regarding pain control. Patient understands wishes to proceed. Patient sitting position under sterile prep and drape trigger point areas were identified in the thoracic paraspinous posterior bilaterally lumbar paraspinous muscle bilateral and gluteus musculature bilaterally using 25-gauge needle after negative aspiration each injection site total of 14 cc 0.25% bupivacaine and total of 40 mg Depo-Medrol were utilized and trigger point injections. Patient tolerated the procedure well and had no complications. TASHIA RAINES MD Jan 09, 2021 14:35
== END | disposition home or self-care (01) ==
LOC: PNCL 13:52
PROVIDERS: ATTEND Anesthesiology
DX: M51.36 Other intervertebral disc degeneration, lumbar region (principal); M48.061 Spinal stenosis, lumbar region without neurogenic claudication; M47.816 Spondylosis without myelopathy or radiculopathy, lumbar region; M96.1 Postlaminectomy syndrome, not elsewhere classified; M79.18 Myalgia, other site; Z79.82 Long term (current) use of aspirin; Z79.899 Other long term (current) drug therapy; Z88.1 Allergy status to other antibiotic agents; Z88.2 Allergy status to sulfonamides; Z91.040 Latex allergy status; Z88.8 Allergy status to other drugs, medicaments and biological substances
CPT/HCPCS: 20553; J1030; J3490

== ENCOUNTER → 2021-04-07 | Outpatient (CLI) | payer MEDICARE ==
[2014-07-20 10:01] VITALS: BP 179/86
[~2021-04-07] MED LIST changes: -BUPIVACAINE MPF 0.25% 30 ML VIAL. ONE; +HYDR200T5 PO; +LANS15CA73 PO; -LANS15CA78 PO; +LEVO50TA5 PO; +METO50TA4 PO; +PANT40TA77 PO; -methylPREDNISolone ACETATE 40 MG/ML VIAL. ONE
--- NOTE | 2021-04-07 13:49 | PDOC ---
Progress Note - Pain Clinic Date of Service: DOS: DATE: 04/07/21 TIME: 13:46 Diagnosis: Dx: Lumbar radiculopathy with lumbar degenerative disc disease lumbar spinal stenosis and spondylosis with post lumbar laminectomy syndrome Myofascial pain History or Present Illness: HPI: 70-year-old female returns for follow-up status post medication management with morphine sulfate and Zanaflex. Patient reports he is doing fairly well with this but very stable regimen about 95% improvement she has also had lumbar epidural steroid injections in the past and we did some trigger point injections on her last visit which she reports was about 90% improved as well patient reports no side effects with the medications still some good relief of pain in the mid thoracic distribution of the spine, but the lumbar spine still with some significant pain and she is wearing a back brace today which she reports does help patient reports pain is aching sharp dull tight shooting burning cramping stabbing radiating constant can be severe and unbearable worse with walking standing changing positions better with sitting or laying down patient reports is generally not awaken her from sleep but over the past month or so it has been.. Patient reports is a 10 on scale 10 is worse of the past week 8 on average 8 its least. Physical Exam: VS: Blood pressure is 120/82 pulse 90 respirations 16 temperature 98.2 F weight is 164 PE: PHYSICAL EXAMINATION: GENERAL: The patient is awake, alert, oriented, appropriate, very pleasant in demeanor HEENT: Shows normocephalic, atraumatic. Extraocular movements are intact and symmetrical. Oral cavity: Mucous membranes moist and pink. Dentition is intact. NECK: Shows anterior throat supple without palpable lymphadenopathy noted. Swallow reflex symmetrical. CHEST: Shows normal on inspection. Breath sounds are clear bilaterally, distant but no rales or rhonchi. HEART: Shows S1, S2 clear. No murmurs auscultated. ABDOMEN: Soft, nontender, nondistended, obese. No palpable organomegaly is noted. BACK: Shows spine grossly in the midline. Normal-appearing cervical lordotic curvature. There is increased thoracic kyphosis, some flattening of the lumbar lordotic curvature, with well-healed surgical scarring. Lumbar paraspinous muscles show symmetrical on inspection, on palpation shows some moderate tenderness diffusely throughout the upper, middle and lower distribution of the paraspinous muscles without specific trigger points, without radiation of pain. The patient has good rotational motion of the lumbar spine, both laterally as well as extension and flexion without significant difficulty. No tenderness over the spinous processes, sacrum or sacroiliac regions. EXTREMITIES: Lower extremities show deep tendon reflexes 1+ in 1 the patellar and tendo calcaneus tendons. Motor exam is 4 on a scale of 5 with right dorsiflexion, extension, quadriceps and hamstring flexion and 4/5 on the left. Peripheral pulses are 1+ posterior tibial. No peripheral edema is noted bilaterally. Lower extremities are warm and dry. SKIN: Shows warm and dry, good turgor. No edema. No sores, rashes or bruising throughout. Procedure: Procedure: Options discussed with the patient. Patient chart reviews her current me dication regimen updated current review of systems updated today as well. We will refill patient's medication via electronic prescription today for morphine sulfate IR 30 mg. Patient has had appropriate K tracks report as well as appropriate urinalyses to date and we will refill this for a 1 month period. Patient was given instructions well side effects with medications and will follow up as scheduled. Medication Injected: Med Injected: None Condition at Discharge: Condition at Discharge: Condition at discharge is stable. TASHIA RAINES MD Apr 07, 2021 13:49
== END | disposition home or self-care (01) ==
LOC: PNCL 12:16
PROVIDERS: ATTEND Anesthesiology
DX: M51.16 Intervertebral disc disorders with radiculopathy, lumbar region (principal); M48.061 Spinal stenosis, lumbar region without neurogenic claudication; M47.26 Other spondylosis with radiculopathy, lumbar region; M96.1 Postlaminectomy syndrome, not elsewhere classified; M79.18 Myalgia, other site; F17.210 Nicotine dependence, cigarettes, uncomplicated; Z79.82 Long term (current) use of aspirin; Z79.899 Other long term (current) drug therapy; Z88.1 Allergy status to other antibiotic agents; Z88.2 Allergy status to sulfonamides; Z91.040 Latex allergy status; Z88.8 Allergy status to other drugs, medicaments and biological substances
CPT/HCPCS: 99212; G0463

== ENCOUNTER → 2021-06-19 | Outpatient (CLI) | payer MEDICARE ==
[2014-07-20 10:01] VITALS: BP 179/86
[~2021-06-19] MED LIST changes: -DULO60CA6 PO; +DULO60CA7 PO; -FLUO20CA20 PO; +FLUO20CA22 PO; -LISI1TAB20 PO; +LISI1TAB39 PO; +TIZA-75 PO; -TIZA4TAB2 PO
--- NOTE | 2021-06-19 13:57 | PDOC ---
Progress Note - Pain Clinic Date of Service: DOS: DATE: 06/19/21 TIME: 13:54 Diagnosis: Dx: Lumbar radiculopathy lumbar degenerative disease lumbar spinal stenosis lumbar spondylosis and lumbar postlaminectomy syndrome Myofascial pain History or Present Illness: HPI: 71-year-old female returns for follow-up status post medication management both morphine sulfate and oxycodone as well as tizanidine. Patient reports he is doing very well with this with about a 70% improvement overall with reduction in pain and without any significant side effects. Patient reports still pain the base of neck and shoulders upper back mid back low back more on the right than the left and radiating pain into lower extremities patient reports her pain is a 9 on scale 10 is worse with past week 6 on average 5 its least it is a 6 today patient ports legs are burning some numbness and tingling as well with extendable activity and standing. Patient reports it wakes him sleep about once a night at the most but some nights not at all patient reports pain is tingling in the back aching the back tight shooting in the legs radiating the legs as well. Patient reports no bowel or bladder incontinence again no side effects with her pain medication. Patient has had appropriate K tracks report as well as appropriate urinalyses to date as well. Physical Exam: VS: Blood pressure is 137/75 pulse 90 respirations 20 temperature 98.1 F weight is 160 pounds. PE: PHYSICAL EXAMINATION: GENERAL: The patient is awake, alert, oriented, appropriate, very pleasant in demeanor HEENT: Shows normocephalic, atraumatic. Extraocular movements are intact and symmetrical. This. Oral cavity: Mucous membranes moist and pink. Dentition is intact. NECK: Shows anterior throat supple without palpable lymphadenopathy noted. Swallow reflex symmetrical. CHEST: Shows normal on inspection. Breath sounds are clear bilaterally. HEART: Shows S1, S2 clear. No murmurs auscultated. ABDOMEN: Soft, nontender, nondistended. No palpable organomegaly is noted. No rebound or guarding demonstrated. BACK: Shows spine grossly in the midline. Normal-appearing cervical lordotic curvature. There is slightly increased thoracic kyphosis, some minor flattening of the lumbar lordotic curvature. Lumbar paraspinous muscles show symmetrical on inspection, on palpation shows some moderate tenderness diffusely throughout the upper, middle and lower distribution of the paraspinous muscles, but without specific trigger points, without radiation of pain. The patient has good rotational motion of the lumbar spine, both laterally as well as extension and flexion with some moderate pain with extension but not with forward flexion or right or left lateral rotation. No tenderness over the spinous processes, s acrum or sacroiliac regions. EXTREMITIES: Lower extremities show deep tendon reflexes 1 in the patellar and tendo calcaneus tendons. Motor exam is 4 on a scale of 5 with right dorsiflexion, extension, quadriceps and hamstring flexion and 4/5 on the left. Peripheral pulses are 1+ posterior tibial. No peripheral edema is noted bilaterally. Lower extremities are warm and dry to touch, equal in color and appearance. SKIN: Shows warm and dry, good turgor. No edema. No sores, rashes or bruising throughout. Procedure: Procedure: Options discussed with the patient. Patient chart was reviewed as her current medication regimen updated current review of systems updated today as well. We will refill patient's oxycodone as well as MSIR with instructions side effects aware discussed with each of the medications. Again patient has had appropriate K tracks report as well as appropriate urinalyses to date and we will refill this for 30-day prescription. Patient will have urinalysis done today as well as part of routine screening. Medication Injected: Med Injected: None Condition at Discharge: Condition at Discharge: Condition at discharge is stable. TASHIA RAINES MD Jun 19, 2021 13:57
== END | disposition home or self-care (01) ==
LOC: PNCL 13:20
PROVIDERS: ATTEND Anesthesiology
DX: M51.16 Intervertebral disc disorders with radiculopathy, lumbar region (principal); M47.26 Other spondylosis with radiculopathy, lumbar region; M48.061 Spinal stenosis, lumbar region without neurogenic claudication; M79.18 Myalgia, other site; G89.29 Other chronic pain
CPT/HCPCS: 99212; G0463

== ENCOUNTER → 2021-07-27 | Outpatient (CLI) | payer MEDICARE ==
[2014-07-20 10:01] VITALS: BP 179/86
[~2021-07-27] MED LIST changes: +OXYC1TAB20 PO
--- NOTE | 2021-07-27 12:47 | PDOC ---
Progress Note - Pain Clinic Date of Service: DOS: DATE: 07/27/21 TIME: 12:44 Diagnosis: Dx: Lumbar radiculopathy with lumbar degenerative disc disease lumbar spinal stenosis and lumbar spondylosis lumbar postlaminectomy syndrome Myofascial pain History or Present Illness: HPI: Telephone visit today with patient's identity verified with date of as well as full name total time spent 14 minutes 71-year-old female calling for telemedicine visit today for medication refill of morphine sulfate as well as Zanaflex and oxycodone patient has been on very stable regimen with the medications reports no side effects and good pain control about 75% overall day today. Patient reports some increased pain more recently in the low back and legs but is been well controlled with the m edications. Patient reports no side effects once again no nausea vomiting dizziness euphoria dysphoria itching or constipation. Patient has had appropriate K tracks report as well as appropriate urinalyses to date as well and we will make this a 30-day prescription patient will follow up in 30 days as scheduled. We discussed patient's medication as well as instructions as well as side effects to be aware of with each of them. Physical Exam: PE: TASHIA RAINES MD Jul 27, 2021 12:47
== END | disposition home or self-care (01) ==
LOC: PNCL 09:26
PROVIDERS: ATTEND Anesthesiology
DX: M51.16 Intervertebral disc disorders with radiculopathy, lumbar region (principal); M48.061 Spinal stenosis, lumbar region without neurogenic claudication; M47.26 Other spondylosis with radiculopathy, lumbar region; M96.1 Postlaminectomy syndrome, not elsewhere classified; M79.18 Myalgia, other site; F17.210 Nicotine dependence, cigarettes, uncomplicated; Z79.82 Long term (current) use of aspirin; Z79.899 Other long term (current) drug therapy; Z88.1 Allergy status to other antibiotic agents; Z88.2 Allergy status to sulfonamides; Z91.040 Latex allergy status; Z88.8 Allergy status to other drugs, medicaments and biological substances
CPT/HCPCS: 99212; G0463

== ENCOUNTER → 2021-08-29 | Outpatient (CLI) | payer MEDICARE ==
[2014-07-20 10:01] VITALS: BP 179/86
--- NOTE | 2021-08-29 16:05 | PDOC ---
Progress Note - Pain Clinic Date of Service: DOS: DATE: 08/29/21 TIME: 16:00 Diagnosis: Dx: Lumbar radiculopathy with lumbar degenerative disc disease lumbar spinal stenosis lumbar spondylosis and post lumbar laminectomy syndrome Myofascial pain History or Present Illness: HPI: 71-year-old female returns for follow-up status post medication management with both MSIR and oxycodone. Patient reports she is doing very well is been on very stable regimen now without any specific side effects patient reports that pain is tolerable with this medication regimen thus far about a 60 to 75% improvement overall. Patient reports it has been this way for several months now and feels that she is fairly stable with the pain control based on her activities of daily living and knows what activities to avoid to exacerbate the pain for the most part is able to do so. Patient reports pain in the low back mid back upper back rating the bilateral lower extremity some pain in the right knee is bothering her most today but without any recent injury. 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 Patient reports is generally not awaken her from sleep currently she sleeps fairly soundly. Patient reports no loss of motor function no bowel or bladder incontinence rates her pain is a 10 on scale 10 is worse over the past week 8 on average 7 its least and is a 7 today. Patient has had appropriate K tracks report as well as appropriate urinalyses to date. Physical Exam: VS: Blood pressure is 125/84 pulse 94 respirations 18 temperature 90.4 F weight is 170 pounds. PE: PHYSICAL EXAMINATION: GENERAL: The patient is awake, alert, oriented, appropriate, very pleasant in demeanor HEENT: Shows normocephalic, atraumatic. Extraocular movements are intact and symmetrical. Patient wearing eyeglasses. Oral cavity: Mucous membranes moist and pink. Dentition is intact. NECK: Shows anterior throat supple without palpable lymphadenopathy noted. Swallow reflex symmetrical. CHEST: Shows normal on inspection. Breath sounds are clear bilaterally, distant but no rales or rhonchi. HEART: Shows S1, S2 clear. No murmurs auscultated. ABDOMEN: Soft, nontender, nondistended. No palpable organomegaly is noted. BACK: Shows spine grossly in the midline. Normal-appearing cervical lordotic curvature. There is mildly increased thoracic kyphosis, some moderate flattening of the lumbar lordotic curvature, with well-healed surgical scar noted. Lumbar paraspinous muscles show symmetrical on inspection, on palpation shows some moderate tenderness diffusely throughout the upper, middle and lower distribution of the paraspinous muscles, but without specific trigger points, without radiation of pain. The patient has good rotational motion of the lumbar spine, both laterally as well as extension and flexion without significant difficulty. No tenderness over the spinous processes, sacrum or sacroiliac regions. EXTREMITIES: Lower extremities show deep tendon reflexes 1 in the patellar and tendo calcaneus tendons. Motor exam is 4 on a scale of 5 with right dorsiflexion, extension, quadriceps and hamstring flexion and 4/5 on the left. Peripheral pulses are 1+ posterior tibial. No peripheral edema is noted bilaterally. Lower extremities are warm and dry. SKIN: Shows warm and dry, good turgor. No edema. No sores, rashes or bruising throughout. Procedure: Procedure: Options were discussed with the patient. Patient's old chart was reviewed as her current medication regimen updated current review of systems updated today as well. We will refill patient's medication both MSIR as well as oxycodone. Patient was given instructions well side effects aware of each of the medications and will follow up in approximate 30 days as scheduled. Again, patient has had appropriate K tracks reporting as well as appropriate urinalyses to date and we will make this a 30-day prescription refill. Medication Injected: Med Injected: None Condition at Discharge: Condition at Discharge: Condition at discharge is stable. TASHIA RAINES MD Aug 29, 2021 16:05
== END | disposition home or self-care (01) ==
LOC: PNCL 15:07
PROVIDERS: ATTEND Anesthesiology
DX: M51.16 Intervertebral disc disorders with radiculopathy, lumbar region (principal); M47.26 Other spondylosis with radiculopathy, lumbar region; M48.061 Spinal stenosis, lumbar region without neurogenic claudication; M96.1 Postlaminectomy syndrome, not elsewhere classified; M79.18 Myalgia, other site; F17.210 Nicotine dependence, cigarettes, uncomplicated; Z79.82 Long term (current) use of aspirin; Z79.899 Other long term (current) drug therapy; Z98.890 Other specified postprocedural states; Z88.1 Allergy status to other antibiotic agents; Z88.8 Allergy status to other drugs, medicaments and biological substances
CPT/HCPCS: 99212; G0463

== ENCOUNTER → 2021-10-24 | Outpatient (CLI) | payer MEDICARE ==
[2014-07-20 10:01] VITALS: BP 179/86
--- NOTE | 2021-10-24 14:15 | PDOC ---
Progress Note - Pain Clinic Date of Service: DOS: DATE: 10/24/21 TIME: 14:11 Diagnosis: Dx: Lumbar radiculopathy with lumbar degenerative disc disease lumbar spinal stenosis and lumbar spondylosis with lumbar postlaminectomy syndrome Myofascial pain History or Present Illness: HPI: 71-year-old female returns for follow-up status post medication management with both morphine sulfate and oxycodone. Patient reports that she is doing fairly well and has been on very stable regimen but having significant pain now after a fall at home her right shoulder as well as her right knee patient reports a 10 on scale 10 is worse over the past week 8 on average 7 its least were generally the pain will be controlled by about 75% is now down about 50 to 60% patient reports tingling burning cramping in the base the neck shoulders upper back middle back low back especially with tight and shooting pain dull and aching can be radiating constant severe at times patient reports no loss of motor function but she feels that she is unstable secondary to the right knee pain. Patient reports she has fallen twice now at home the most recent time onto her right shoulder. Patient reports she still sleeping well at night does not generally awaken her from sleep she sleeps about 8 to 9 hours at a time better with sitting or laying down generally worse with walking standing specially putting her weight on her right knee and right lower extremity. Patient reports no side effects with her medication and will have contract renewed today and she will be given a copy of this as well. Physical Exam: VS: Blood pressure is 131/72 pulse 76 respirations 16 temperature 90.8 F weight 174 pounds PE: PHYSICAL EXAMINATION: GENERAL: The patient is awake, alert, oriented, appropriate, very pleasant in demeanor HEENT: Shows normocephalic, atraumatic. Extraocular movements are intact and symmetrical. Patient wearing eyeglasses. Oral cavity: Mucous membranes moist and pink. Dentition is intact. NECK: Shows anterior throat supple without palpable lymphadenopathy noted. Swallow reflex symmetrical. CHEST: Shows normal on inspection. Breath sounds are clear bilaterally, no rales rhonchi or wheezes auscultated. HEART: Shows S1, S2 clear. No murmurs auscultated. ABDOMEN: Soft, nontender, nondistended. No palpable organomegaly is noted. BACK: Shows spine grossly in the midline. Normal-appearing cervical lordotic curvature. There is mildly increased thoracic kyphosis, some flattening of the lumbar lordotic curvature with well-healed surgical scarring. Lumbar paraspinous muscles show symmetrical on inspection, on palpation shows some moderate tenderness diffusely throughout the upper, middle and lower distribution of the paraspinous muscles, but without specific trigger points, without radiation of pain. The patient has good rotational motion of the lumbar spine, both laterally as well as extension and flexion without significant difficulty. No tenderness over the spinous processes, sacrum or sacroiliac regions. EXTREMITIES: Lower extremities show deep tendon reflexes 1+ in the patellar and tendo calcaneus tendons. Motor exam is 4 on a scale of 5 with right dorsiflexion, extension, quadriceps and hamstring flexion and 4/5 on the left. Peripheral pulses are 1+ posterior tibial. No peripheral edema is noted bilaterally. Lower extremities are warm and dry to touch, equal in color and appearance. Patient's right knee shows significant tenderness over the medial collateral ligament but not the lateral aspect with good range of motion without significant ratcheting or crepitus bilaterally. SKIN: Shows warm and dry, good turgor. No edema. No sores, rashes or bruising throughout. Procedure: Procedure: Options discussed with the patient. Patient reviews her current medication regimen updated current review of systems updated today as well. Patient has had appropriate K tracks report as well as appropriate urinalyses to date. We will refill patient's MS IR as well as oxycodone with instructions side effects aware of. Also will add meloxicam 15 mg 1 tablet daily patient was given instructions well side effects beware of each of the medications and will follow up in approximate 30 days as scheduled. Medication Injected: Med Injected: None Condition at Discharge: Condition at Discharge: Condition at discharge is stable. TASHIA RAINES MD Oct 24, 2021 14:15
== END | disposition home or self-care (01) ==
LOC: PNCL 12:58
PROVIDERS: ATTEND Anesthesiology
DX: M51.16 Intervertebral disc disorders with radiculopathy, lumbar region (principal); M48.061 Spinal stenosis, lumbar region without neurogenic claudication; M47.26 Other spondylosis with radiculopathy, lumbar region; M96.1 Postlaminectomy syndrome, not elsewhere classified; M79.18 Myalgia, other site; F17.210 Nicotine dependence, cigarettes, uncomplicated; Z79.82 Long term (current) use of aspirin; Z79.899 Other long term (current) drug therapy; Z98.890 Other specified postprocedural states; Z88.1 Allergy status to other antibiotic agents; Z88.2 Allergy status to sulfonamides; Z88.8 Allergy status to other drugs, medicaments and biological substances
CPT/HCPCS: 99212; G0463

== ENCOUNTER → 2021-11-17 | Outpatient (CLI) | payer MEDICARE ==
[2014-07-20 10:01] VITALS: BP 179/86
--- NOTE | 2021-11-17 13:14 | PDOC ---
Progress Note - Pain Clinic Date of Service: DOS: DATE: 11/17/21 TIME: 13:10 Diagnosis: Dx: Lumbar radiculopathy with lumbar degenerative disease lumbar spinal stenosis with lumbar spondylosis and post lumbar laminectomy syndrome Myofascial pain History or Present Illness: HPI: Telemedicine visit today with patient standing verified with full name as well as full date of , total time spent 14 minutes, telephone voice only. 71-year-old female via telemedicine visit requesting refill of MS IR as well as Percocet patient reports he is doing very well with this and has actually good control about 70 to 75% currently with the medications without side effects. Patient reports occasional constipation but is very easily corrected with [id number] laxatives and hydration. Patient reports no new motor or sensory deficits no loss of motor function some significant fatigability in the low back and lower extremities with extended standing and walking and lately she has been helping her who recently had a knee replacement and is somewhat more stress on her back and lower extremities but she reports she is dealing with it well and the medication is taking care of the pain. Patient has had appropriate K tracks reporting as well as appropriate urinalyses to date as well. We discussed options and will refill patient's medication via electronic prescription of morphine immediate release 30 mg and Percocet 10 mg, patient was given instructions as well as side effects to be aware of with each of the medications. Patient will follow up in approximately 30 days as scheduled. Physical Exam: PE: TASHIA RAINES MD Nov 17, 2021 13:14
== END | disposition home or self-care (01) ==
LOC: PNCL 12:07
PROVIDERS: ATTEND Anesthesiology
DX: M51.16 Intervertebral disc disorders with radiculopathy, lumbar region (principal); M48.061 Spinal stenosis, lumbar region without neurogenic claudication; M47.26 Other spondylosis with radiculopathy, lumbar region; M79.18 Myalgia, other site; M96.1 Postlaminectomy syndrome, not elsewhere classified; F17.210 Nicotine dependence, cigarettes, uncomplicated; Z79.82 Long term (current) use of aspirin; Z79.899 Other long term (current) drug therapy; Z98.890 Other specified postprocedural states
CPT/HCPCS: 99212; G0463

== ENCOUNTER → 2021-12-26 | Outpatient (CLI) | payer MEDICARE ==
[2014-07-20 10:01] VITALS: BP 179/86
[~2021-12-26] MED LIST changes: +BUPIVACAINE MPF 0.25% 10 ML VIAL. ONE; +DEXAMETHASONE PRES.FREE 10 MG/ML VIAL. ONE
--- NOTE | 2021-12-26 13:53 | PDOC4 ---
Procedure Note: ICD 10 Code: ICD 10 Code: M60.89 Procedure Note: Patient is consented for trigger point injections. Risk were discussed including but not limited to bleeding infection possibility of intravascular injection sequelae spread of local anesthetic numbness side effects steroid medication and portals regarding pain control. Patient understands wished to proceed. Patient sitting position under sterile prep and drape trigger point areas were identified in the bilateral lumbar paraspinous posterior as well as the bilateral gluteus musculature using a 25-gauge needle after negative aspiration each injection site total of 8 cc 0.25% bupivacaine and total of 10 mg dexamethasone was injected. Patient tolerated the procedure well and had no complications. TASHIA RAINES MD December 26, 2021 13:53
--- NOTE | 2021-12-26 13:53 | PDOC ---
Progress Note - Pain Clinic Date of Service: DOS: DATE: 12/26/21 TIME: 13:48 Diagnosis: Dx: Lumbar radiculopathy with lumbar degenerative disc disease lumbar spinal stenosis lumbar spondylosis Myofascial pain History or Present Illness: HPI: 71-year-old female returns for follow-up status post medication management with both MS IR and oxycodone patient reports he is doing very well with this with about a 75% improvement overall but her main complaint today is pain in the low back and the right side of the mid back as well patient reports is getting worse over the past several weeks and spastic and tight in quality in the low back and especially on the right side patient reports is better with heat but has been having difficulty moving change positions getting up has been awakened from sleep frequently throughout the night patient rates her pain as a 10 on scale 10 is worst over the past week 8 on average 7 its least is an 8 today. Patient reports a tingling burning cramping stabbing shooting dull tight can be constant severe and unbearable. Patient reports no loss of motor function no bowel or bladder incontinence again no side effects with the medication she has had appropriate K tracks report as well as appropriate urinalyses to date. Physical Exam: VS: Blood pressure is 133/76 pulse 76 respirations 16 temperature 98.6 was Fahrenheit weight is 177 pounds. PE: PHYSICAL EXAMINATION: GENERAL: The patient is awake, alert, oriented, appropriate, very pleasant in demeanor HEENT: Shows normocephalic, atraumatic. Extraocular movements are intact and symmetrical. Oral cavity: Mucous membranes moist and pink. Dentition is intact. NECK: Shows anterior throat supple without palpable lymphadenopathy noted. Swallow reflex symmetrical. CHEST: Shows normal on inspection. Breath sounds are clear bilaterally, distant but no rales or rhonchi auscultated. HEART: Shows S1, S2 clear. No murmurs auscultated. ABDOMEN: Soft, nontender, nondistended. No palpable organomegaly is noted. BACK: Shows spine grossly in the midline. Normal-appearing cervical lordotic curvature. There is slightly increased thoracic kyphosis, some minor flattening of the lumbar lordotic curvature. Lumbar paraspinous muscles show symmetrical on inspection, on palpation shows some moderate tenderness diffusely throughout the upper, middle and lower distribution of the paraspinous muscles with significant tenderness in the right lumbar paraspinous posterior as well as the left paraspinous musculature inferiorly with hypertrophy noticeable in the right paraspinous musculature in the lumbar distribution middle and lower distribution compared to the left also various firm ropelike musculature throughout the muscles in the lumbar paraspinous distribution bilaterally consistent with trigger point areas of musculature without radiation with palpation. Patient also has significant tenderness and very firm ropelike musculature in the bilateral superior gluteus right and left as well without significant radiation but consistent with areas of trigger point musculature also. The patient has good rotational motion of the lumbar spine, both laterally as well as extension and flexion without significant difficulty.. EXTREMITIES: Lower extremities show deep tendon reflexes 1+ in the patellar and tendo calcaneus tendons. Motor exam is 4 on a scale of 5 with right dorsiflexion, extension, quadriceps and hamstring flexion and 4/5 on the left. Peripheral pulses are 1+ posterior tibial. No peripheral edema is noted bilaterally. Lower extremities are warm and dry to touch, equal in color and appearance. SKIN: Shows warm and dry, good turgor. No edema. No sores, rashes or bruising throughout. Procedure: Procedure: Options discussed with patient. Patient's old chart was reviewed as her current medication regimen updated current review of systems updated today as well. We will proceed with trigger point injection of the bilateral lumbar paraspinous posterior as well as the bilateral gluteus musculature. Risk were discussed including but not limited to bleeding infection possibility of intravascular injection sequelae spread of local anesthetic numbness side effects steroid medication portals regarding pain control. Patient understands and wished to proceed. Patient return to clinic in approximately 4 weeks for follow-up was counseled as to return appointment activity level and side effects to be aware of. We will electronically prescribe patient MS IR as well as Percocet with instructions side effects beware discussed with each. Medication Injected: Med Injected: Patient sitting position under sterile prep and drape trigger point areas were identified in the bilateral lumbar paraspinous posterior as well as the bila teral gluteus musculature using a 25-gauge needle after negative aspiration each injection site total of 8 cc 0.25% bupivacaine and total of 10 mg dexamethasone was injected. Patient tolerated the procedure well and had no complications. Condition at Discharge: Condition at Discharge: Condition at discharge stable, patient tolerated procedure well and had no complications. TASHIA RAINES MD December 26, 2021 13:53
== END | disposition home or self-care (01) ==
LOC: PNCL 13:01
PROVIDERS: ATTEND Anesthesiology
DX: M51.16 Intervertebral disc disorders with radiculopathy, lumbar region (principal); M48.061 Spinal stenosis, lumbar region without neurogenic claudication; M47.26 Other spondylosis with radiculopathy, lumbar region; M79.18 Myalgia, other site; F17.210 Nicotine dependence, cigarettes, uncomplicated; Z79.82 Long term (current) use of aspirin; Z79.899 Other long term (current) drug therapy; Z98.890 Other specified postprocedural states; Z88.1 Allergy status to other antibiotic agents; Z88.2 Allergy status to sulfonamides; Z88.8 Allergy status to other drugs, medicaments and biological substances
CPT/HCPCS: 20553; J1100; J3490